=== PATIENT | male | born 1955 | race Caucasian/White ===

== ENCOUNTER 2018-02-09 17:35 | Emergency (ER) | payer BC, OTHER ==
[2018-02-09] MEDS ORDERED: NS 0.9% 1000 ML* 1,000 ML IV ONE ×3 (17:59→19:51)
[2018-02-09] MEDS ORDERED: Ondansetron INJ* 2 MG/ML VIAL IV ONE ×2 (17:59→19:46)
[2018-02-09] MEDS ORDERED: Ondansetron INJ* 2 MG/ML VIAL ONE (18:00)
--- NOTE | 2018-02-09 18:04 | ED ---
HPI Chest Pain - HPI Summary HPI Summary: The patient is a 62-year-old male with no significant PMH presenting to the ED with acute onset right-sided neck pain radiating into the mid sternal chest region which she describes as a pressure and achy, rating the pain a 10/10 which remained constant for several minutes. He was performing some physical therapy exercises when his symptoms occurred. However, he states he performs his physical therapy exercises often and has never had this happen. He also complains of shortness of breath. and family member at bedside both stating he appeared very vincent and extremely diaphoretic, became very dizzy and complained of blurry and double vision. Denies any radiation of symptoms into the bilateral arms or to the left side of the neck. Denies any headache. He took a 325 aspirin at home and the ambulance was called. On arrival into the ED , he developed another episode of similar symptoms of midsternal chest pain, blurry vision, diaphoresis, became very pale and began to vomit. He has no cardiac history. He states he is very healthy and is very active. He denies any recent travel, history of bedrest, known malignancy or recent illness. He takes a baby aspirin [address] Moscoso is his PCP. He denies having an echo or EKG in recent history. - History of Current Complaint Chief Complaint: EDChestPainROMI Time Seen by Provider: 02/09/18 17:44 Hx Obtained From: Patient, Family/Inbound Sales Advisor Onset/Duration: Started Minutes Ago Timing: Constant Initial Severity: Severe Current Severity: Moderate Pain Intensity: 5 Pain Scale Used: 0-10 Numeric Chest Pain Location: Mid Sternal Chest Pain Radiates: Yes Chest Pain Radiates To:: Neck Character: Dull/Aching Aggravating Factor(s): Nothing Alleviating Factor(s): Nothing Associated Signs and Symptoms: Positive: Chest Pain, Vision Changes, Lightheadedness, Diaphoresis, Nausea - Risk Factors Pulmonary Embolism Risk Factors: Negative TAD Risk Factors: Negative AMI/ACS Risk Factors: Myocardial Infarction - Additional Pertinent History Referred By: Other Recent Echo: No Recent Stress Test: No - Allergy/Home Medications Allergies/Adverse Reactions: Allergies Allergy/AdvReac Type Severity Reaction Status Date / Time oxycodone Allergy Severe See Comment Verified 02/09/18 18:08 PMH/Surg Hx/FS Hx/Imm Hx Previously Healthy: Yes Endocrine/Hematology History: Denies: Hx Diabetes Cardiovascular History: Denies: Hx Hypertension Respiratory History: Denies: Hx Chronic Obstructive Pulmonary Disease (COPD) GI History: Reports: Hx Gastroesophageal Reflux Disease - ON MEDICATION FOR History: Denies: Hx Dialysis Musculoskeletal History: Reports: Hx Arthritis - HIPS Sensory History: Reports: Hx Contacts or Glasses - GLASSES Denies: Hx Hearing Aid Opthamlomology History: Reports: Hx Contacts or Glasses - GLASSES Neurological History: Denies: Hx Dementia, Hx Seizures - Surgical History Surgery Procedure, Year, and Place: LEFT WRIST SURGERY, left hip 2013 Hx Anesthesia Reactions: No - Immunization History Hx Pertussis Vaccination: No Immunizations Up to Date: Yes Infectious Disease History: No Infectious Disease History: Denies: Traveled Outside the [place] in Last 30 Days - Social History Occupation: Employed Full-time Lives: With Family Alcohol Use: None Hx Substance Use: No Substance Use Type: Reports: None Hx Tobacco Use: No Smoking Status (MU): Never Smoked Tobacco Review of Systems Constitutional: Negative Negative: Fever, Chills, Fatigue, Skin Diaphoresis Positive: Blurred Vision Positive: Chest Pain. Negative: Palpitations Positive: Shortness Of Breath. Negative: Cough Positive: Nausea. Negative: Abdominal Pain, Vomiting, Diarrhea Negative: Arthralgia, Myalgia Skin: Negative Positive: Weakness. Negative: Headache, Paresthesia, Numbness, Syncope Psychological: Normal All Other Systems Reviewed And Are Negative: Yes Physical Exam Triage Information Reviewed: Yes Vital Signs On Initial Exam: Initial Vitals Pulse Resp Pulse Ox 138 35 97 02/09/18 17:43 02/09/18 17:43 02/09/18 17:43 Vital Signs Reviewed: Yes Appearance: Positive: Ill-Appearing, Pain Distress Skin: Positive: Diaphoretic Head/Face: Positive: Normal Head/Face Inspection Eyes: Positive: EOMI, MARYCARMEN, Conjunctiva Clear Neck: Positive: Supple, Nontender, No Lymphadenopathy Respiratory/Lung Sounds: Positive: Clear to Auscultation, Breath Sounds Present Cardiovascular: Positive: Pulses are Symmetrical in both Upper and Lower Extremities, Tachycardia. Negative: Leg Edema Left, Leg Edema Right Musculoskeletal: Positive: Normal, Strength/ROM Intact Neurological: Positive: Speech Normal Psychiatric: Positive: Normal, Affect/Mood Appropriate AVPU Assessment: Alert Diagnostics - Vital Signs Vital Signs Temp Pulse Resp BP Pulse Ox 02/09/18 17:46 98.3 F 72 18 115/86 98 02/09/18 17:45 83 24 115/86 100 02/09/18 17:43 138 35 97 - Laboratory Result Diagrams: 02/09/18 17:59 02/09/18 17:59 Lab Statement: Any lab studies that have been ordered have been reviewed, and results considered in the medical decision making process. - CT No standard instances CT Interpretation: Positive (See Comments) CT Interpretation Completed By: Radiologist - IMPRESSION: No evidence of aneurysmal dilatation or branch occlusion is noted. Atherosclerosis at the origin of the left internal carotid artery. Less than 50% stenosis of left internal carotid artery. No significant stenosis of the right internal carotid artery Dr. Salvador was given a preliminary report of the CTA of the chest demonstrating a ascending aortic aneurysm measuring up to 7.5 cm with likely mediastinal hemorrhage and moderate to large pericardial effusion. Chest Pain Course/Dx - Course Course Of Treatment: During the course of treatment, the patient is evaluated for midsternal chest pain, right-sided neck pain. On arrival, EKG obtained which shows normal sinus rhythm. Labs obtained which show an elevated d-dimer at 290, troponin 0.01. Patient continues to complain of nausea, diaphoresis and worsening chest pain, however he continues to decline the morphine. Discussed case with Dr. Salvador who agrees to see patient and agrees with CTA. He is given Zofran 4 mg which improved his symptoms. CTA of chest, head and neck obtained. Dr. Oakley called to stat ready CTA. See above for report. He is accepting of morphine at this time and 2mg morphine and 4mg zofran is given. He is then given reglan as zofran did not improve his symptoms. BP drops from 140/89 on arrival to 89/56. Continues to receive fluids. Called [facility] for transfer. ALS by helicopter - patient is critical. Accepting physician is Dr. Lynch at [facility]. - Chest Pain Differential Diagnosis/HQI/PQRI: Acute NH, Angina, Pulmonary Embolism, Other: - aortic dissection - Diagnoses Provider Diagnoses: Aortic aneurysm - Provider Notifications Instructed by Provider To: Transfer Admit/Transition Orders Completed By ED Provider: Yes Reason For Transfer: Specialty or service not available at [facility] [place]. - Critical Care Time Critical Care Time: 75-104 min Discharge - Sign-Out/Discharge Documenting (check all that apply): Patient Departure - Discharge Plan Condition: Critical Disposition: TRANS HIGHER LVL OF CARE FAC Referrals: Eric Moscoso MD [Primary Care Provider] - - Billing Disposition and Condition Condition: CRITICAL Disposition: Trans Higher Lvl of Care Fac
[2018-02-09 18:10] LABS: ABS Basophils 0.1 10^3/ul (0-0.2); ABS Eosinophils 0.5 10^3/ul (0-0.6); ABS Lymphocytes 2.5 10^3/ul (1.0-4.8); ABS Monocytes 0.9 10^3/ul (0-0.8); ABS Neutrophils 8.8 10^3/ul (1.5-7.7); ABS Nucleated RBC 0 10^3/ul; Eosinophil % 3.6 % (0-6); Hematocrit 41 % (42-52); Hemoglobin 14.3 g/dl (14.0-18.0); Lymphocyte % 19.6 % (25-47); Mean Corpuscular HGB Conc 35 g/dl (31-36); Mean Corpuscular Hemoglobin 30 pg (27-31); Mean Corpuscular Volume 87 fL (80-94); Mean Platelet Volume 7.2 um3 (7.4-10.4); Nucleated Red Blood Cells % 0.1; Platelet Count 218 10^3/ul (150-450); Red Blood Count 4.76 10^6/ul (4.00-5.40); Red Cell Distribution Width 13 % (10.5-15); White Blood Count 12.8 10^3/ul (3.5-10.8)
[2018-02-09 18:28] LABS: EGFR Non-African American 70.3 (>60)
[2018-02-09 18:31] LABS: INR 0.95 (0.77-1.02)
[2018-02-09] MEDS ORDERED: Iodixanol* (CONTRAST) 320 MG/ML 100 ML SDV IV ONE ×2 (18:37→19:17)
--- OUTSIDE RECORDS SUMMARY | 2018-02-09 18:52 | XMS REPORT | Continuity of Care Document ---
:1955 External Reference #:[id number] Author Name Eric Moscoso M.D. Address [address] [facility] [address] [place] [address] Care Team Providers Name Role Phone HCP given Primary Care Physician Unavailable Payers Type Date Identification Numbers Payment Provider Subscriber Policy Number: [id number] [place] [employer] Number: [id number] [address] PayID: [id number] [place] [address] Advance Directives Description No Information Available Problems Date Description Provider Status Onset: 07/03/2006 Family history of prostate cancer Eric Moscoso M.D. Active Family History Date Family Member(s) Problem(s) Comments General Both paternal uncles of CAD in their late 50s to early 60s. 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 Tobacco Use Reviewed: Never Smoked Cigarettes 06/02/14 Smoking Status Reviewed: Never Smoked Cigarettes 06/02/14 ETOH Use Rare Alcohol Use Exercise Type/Frequency Exercises regularly Current Allergies, Adverse Reactions, Alerts Date Description Reaction Status Severity Comments 12/16/2012 Oxycodone Active [place] depressed 07/03/2006 NKDA Inactive Medications Medication Date Status Form Strength Qnty SIG Indications Ordering Provider Vitamin D 06/12/ Active 2 po daily Unknown 2016 Ibuprofen 02/19/ Active Tablets 800mg prn Unknown 2014 Hydrocortisone 07/28/ Active Lotion 2.5% 59ml apply twice 691.8 Tracy 2014 a day as Gary, needed D.O. Osteo Bi-Flex 02/06/ Active Tablets Danis, 2010 Mariela Reyes Ecotrin Low 07/06/ Active Tablets 81mg 100ta 1tab po 786.50 Jerad, Strength 2009 bs daily for Nancy BONILLA cad/cva prophylaxis Multi-Vitamin 12/01/ Active Tablets 1 qd Danis, 2007 Mariela Reyes PT For Right 12/26/ Hx please M25.551 Danis Groin Pain 2018 - evaluate and Eric (Suspect Hip 01/26/ treat, M.Jillian Flexor) 2018 instruct in hep, modalities prn Proair HFA 07/28/ Hx Aerosol 108(90Bas 8.5un 1-2 puffs 466.0 Tracy 2014 - e) its four times a Gary, 08/27/ mcg/Act day as D.O. 2015 needed Qvar 07/28/ Hx Aerosol 80mcg/Act 1unit 1 puff twice 466.0 Tracy, 2015 - s a day every Gary, 08/11/ day and D.O. 2014 rinse after use Atorvastatin 06/22/ Hx Tablets 20mg 90tab 1 by mouth 272.0 Danis Calcium 2014 - s every day Eric 06/27/ for high M.D. 2014 cholesterol Prednisone 01/06/ Hx Tablets 10mg 21tab 4 tabs qd 692.6 Tracy 2013 - s for 2 days Gary 05/31/ then 3 tabs D.O. 2014 qd for 2 days then 2 tabs qd for 2 days then 1 tab qd for 2 days then 1/2 tab qd for 2 days [id number] 02/07/ Hx Capsules 500-50mg 180ca 1 by mouth 715.15 Danis 2010 - ps twice a day Eric 03/20/ for joint M.D. 2012 pains Mupirocin 02/07/ Hx Ointment 2% 22gm apply to 684 Danis 2010 - affected Eric 02/21/ area on r M.D. 2010 earlobe 4-6x/day until clear Proventil HFA 08/09/ Hx Aerosol 108(90Bas 1unit use one to 2 786.2 Jerad, 2010 - e) mcg/ac s inh q 6hours Nancy BONILLA 03/20/ prn cough. 2011 Azithromycin 08/09/ Hx Tablets 250mg 6tabs 2 tab po on 786.2 Jerad 2010 - day one then Nancy BONILLA 08/14/ one tab 2011 daily x 4more days prn for your respiratory infection PT For Left Hip 11/17/ Hx please 719.45 Silcoff, And Knee Pain 2008 - evaluate and Eric 07/06/ Mariela guerrero 2010 instruct in hep, modalities prn (Xrays pending) Tagamet 12/01/ Hx Tablets 200mg Using OTC as Danis 2007 - Directed Eric 06/15/ Mariela 2017 No Routine Meds 09/23/ Hx Mariettacoprincess, 2007 - Eric 12/01/ Mariela 2007 Symbicort 06/30/ Hx Aerosol 80-4.5 1Samp 2 puff bid 786.2 Danis 2007 - le Eric 07/14/ Mariela 2007 466.0 Zithromax Z-Isaiah 07/01/2007 - Hx Tablets 250mg 1Pack 2 PO On 466.0 Danis 07/06/2007 Day 1, 1 Mariela Reyes PO On Days 2-5 786.2 Naprosyn - Hx Tablets 500mg 60tabs 1 po bid Unknown 07/06/2009 Tagamet HB - Hx Tablets 200mg to use regulalry 786.50 Jerad, 06/15/2017 to prevent Nancy BONILLA reflus sx pending evaluation 530.81 Medications Administered in Office Medication Date Status Form Strength Qnty SIG Indications Ordering Provider injection, Administered Injection Sopchak, kenalog, 10 mg 014 Gary, D.O. SC/Im Administered Injection Sopchak, Injections 014 Gary, D.O. Immunizations CPT Code Status Date Vaccine Lot # [id number] Given 12/26/2017 Influenza Virus Vaccine, Quadrivalent, Split, [id number] Preservative Free 23073 Given 10/25/2017 Shingrix Zoster (Shingles) Vaccine (HZV) [id number] Recomb,Subnit,Adjuvanted 46317 Given 08/29/2017 Shingrix Zoster (Shingles) Vaccine (HZV) [id number] Recomb,Subnit,Adjuvanted 03407 Given 06/15/2017 Influenza Virus Vaccine, Quadrivalent, Split, [id number] Preservative Free 65051 Given 12/16/2012 Zostavax [id number] 72506 Given 02/07/2011 Adacel or Boostrix, TDaP [id number] 34874 Given 08/29/1999 Td Immunization [id number] Refused 02/07/2011 Flu, Split Virus [id number] Refused 02/22/2009 Flu, Split Virus 3Yrs Vital Signs Date Vital Result Comment 02/08/2018 1:51pm BP Systolic 148 mmHg BP Diastolic 78 mmHg Height 69.50 inches 5'9.50" Weight 208.00 lb BMI (Body Mass Index) 30.3 kg/m2 12/26/2017 3:13pm BP Systolic 164 mmHg BP Diastolic 84 mmHg Weight 204.00 lb 06/15/2017 9:55am BP Systolic 162 mmHg BP Diastolic 92 mmHg BP Systolic Recheck 140 mmHg R arm sitting BP Diastolic Recheck 78 mmHg R arm sitting Heart Rate 74 /min reg Respiratory Rate 14 /min not laboured Height 69.5 inches 5'9.50" Weight 201.00 lb BMI (Body Mass Index) 29.3 kg/m2 06/13/2016 10:51am BP Systolic 142 mmHg BP Diastolic 88 mmHg BP Systolic Recheck 138 mmHg R arm sitting BP Diastolic Recheck 84 mmHg R arm sitting Heart Rate 76 /min reg Respiratory Rate 12 /min not laboured Height 69.5 inches 5'9.50" Weight 204.00 lb BMI (Body Mass Index) 29.7 kg/m2 12/29/2015 2:03pm BP Systolic 136 mmHg BP Diastolic 80 mmHg Body Temperature 98.9 F Weight 207.00 lb 10/21/2015 4:10pm BP Systolic 142 mmHg BP Diastolic 90 mmHg Height 70 inches 5'10" with shoes Weight 209.00 lb with shoes BMI (Body Mass Index) 30.0 kg/m2 06/29/2015 12:50pm BP Systolic 142 mmHg BP Diastolic 85 mmHg Weight 198.00 lb 06/08/2015 10:44am BP Systolic 134 mmHg BP Diastolic 80 mmHg BP Systolic Recheck 138 mmHg R arm sitting BP Diastolic Recheck 88 mmHg R arm sitting Heart Rate 72 /min reg Respiratory Rate 12 /min not laboured Weight 201.00 lb 02/22/2015 11:30am BP Systolic 155 mmHg his cuff; 161/104 Larm BP Diastolic 91 mmHg his cuff; 161/104 Larm BP Systolic Recheck 152 mmHg our cuff; 156/96 L arm BP Diastolic Recheck 88 mmHg our cuff; 156/96 L arm Height 70.25 inches 5'10.25" Weight 208.00 lb BMI (Body Mass Index) 29.6 kg/m2 02/22/2015 10:40am BP Systolic 152 mmHg BP Diastolic 90 mmHg Height 70.25 inches 5'10.25" with shoes Weight 208.00 lb with shoes BMI (Body Mass Index) 29.6 kg/m2 07/28/2014 1:43pm BP Systolic 146 mmHg BP Diastolic 86 mmHg Body Temperature 98.7 F Weight 203.00 lb 06/02/2014 10:47am BP Systolic 138 mmHg BP Diastolic 94 mmHg BP Systolic Recheck 140 mmHg L arm; 130 by palp BP Diastolic Recheck 90 mmHg L arm; 130 by palp Height 69.5 inches 5'9.50" Weight 202.00 lb BMI (Body Mass Index) 29.4 kg/m2 01/06/2014 12:04pm Body Temperature 98.5 F Weight 204.00 lb 12/16/2012 1:30pm BP Systolic 140 mmHg BP Diastolic 80 mmHg Height 70 inches 5'10" Weight 199.00 lb BMI (Body Mass Index) 28.6 kg/m2 06/05/2012 9:42am BP Systolic 154 mmHg Reg cuff; 138/80 w/ large cuff BP Diastolic 88 mmHg Reg cuff; 138/80 w/ large cuff BP Systolic Recheck 152 mmHg R arm sitting w/ large cuff BP Diastolic Recheck 98 mmHg R arm sitting w/ large cuff Heart Rate 60 /min reg Respiratory Rate 12 /min not laboured Weight 189.00 lb 04/05/2012 1:39pm BP Systolic 142 mmHg BP Diastolic 90 mmHg Weight 184.00 lb 03/20/2012 4:27pm BP Systolic 144 mmHg BP Diastolic 94 mmHg Body Temperature 98.3 F Height 70 inches 5'10" Weight 183.00 lb BMI (Body Mass Index) 26.3 kg/m2 02/07/2011 10:59am BP Systolic 138 mmHg BP Diastolic 96 mmHg BP Systolic Recheck 148 mmHg R arm sitting BP Diastolic Recheck 100 mmHg R arm sitting Height 70 inches 5'10" Weight 207.00 lb BMI (Body Mass Index) 29.7 kg/m2 Last Menstrual Period 0 08/09/2010 11:30am BP Systolic 124 mmHg BP Diastolic 68 mmHg Body Temperature 98.1 F Height 70 inches 5'10" Weight 207.00 lb BMI (Body Mass Index) 29.7 kg/m2 Last Menstrual Period 0 07/06/2009 10:16am BP Systolic 138 mmHg 142/92 this am at home BP Diastolic 88 mmHg 142/92 this am at home Weight 209.00 lb 02/22/2009 9:43am BP Systolic 138 mmHg BP Diastolic 88 mmHg BP Systolic Recheck 146 mmHg L arm sitting BP Diastolic Recheck 92 mmHg L arm sitting Heart Rate 68 /min reg Height 70 inches 5'10" Weight 207.00 lb BMI (Body Mass Index) 29.7 kg/m2 Last Menstrual Period 0 11/17/2008 3:19pm BP Systolic 130 mmHg BP Diastolic 92 mmHg Height 70.75 inches 5'10.75" Weight 200.00 lb BMI (Body Mass Index) 28.1 kg/m2 12/02/2007 1:36pm BP Systolic 132 mmHg BP Diastolic 78 mmHg Height 70.25 inches 5'10.25" Weight 203.00 lb BMI (Body Mass Index) 28.9 kg/m2 09/24/2007 9:54am BP Systolic 140 mmHg anxious BP Diastolic 80 mmHg anxious Height 70.25 inches 5'10.25" Weight 202.00 lb BMI (Body Mass Index) 28.8 kg/m2 07/01/2007 8:57am BP Systolic 122 mmHg BP Diastolic 84 mmHg Respiratory Rate 16 /min not laboured Body Temperature 98.0 F Height 70.25 inches 5'10.25" Weight 202.50 lb BMI (Body Mass Index) 28.8 kg/m2 07/03/2006 8:35am BP Systolic 148 mmHg BP Diastolic 100 mmHg BP Systolic Recheck 146 mmHg R arm sitting BP Diastolic Recheck 96 mmHg R arm sitting Heart Rate 54 /min reg Respiratory Rate 12 /min not laboured Height 70.25 inches 5'10.25" Weight 201.00 lb BMI (Body Mass Index) 28.6 kg/m2 Results Test Date Facility Test Result H/L Range Note Laboratory test 01/21/2018 [facility] PSA Diagnostic 5.007 ng/mL High 0-4.0 1 finding [phone] Laboratory test 08/13/2017 [facility] PSA Screening 3.830 ng/mL 0- 4.0 2 finding [phone] Laboratory test 05/28/2017 [facility] PSA Screening 4.378 ng/mL High 0-4.000 3 finding [phone] Basic Metabolic 05/28/2017 [facility] Sodium 138 mmol/L 133-145 Panel [phone] Potassium 4.9 mmol/L 3.5-5.0 Chloride 105 mmol/L 101-111 Co2 Carbon Dioxide 28 mmol/L 22-32 Anion Gap 5 mmol/L 2-11 Glucose 94 mg/dL 70-100 Blood Urea Nitrogen 17 mg/dL 6-24 Creatinine 1.03 mg/dL 0.67-1.17 BUN/Creatinine Ratio 16.5 8-20 Calcium 9.4 mg/dL 8.6-10.3 Egfr Non- 73.4 >60 Egfr 94.4 >60 4 Lipid Profile (Trig/Chol/HDL) 05/28/2017 [facility] Triglycerides 63 mg /dL 5 [phone] Cholesterol 195 mg/dL 6 HDL Cholesterol 57.8 mg/dL 7 LDL Cholesterol 125 mg/dL 8 Laboratory test 11/10/2016 [facility] Surgical SEE RESULT 9, 10 finding [phone] Pathology BELOW Urine Micro 06/13/2016 In House Ua WBC - 11 Inhouse Ua RBC - Ua Casts - Ua Epi - Ua Other - Ua Glucose - Ua Bilirubin - Ua Ketones - Ua Specific [place] 1.020 Ua Blood - Ua PH 6.0 Ua Protein - Ua Urobilinogen - Ua Nitrite - Ua Leukocytes - Laboratory test 06/02/2016 [facility] PSA Screening 3.145 ng/mL 0- 4.000 12 finding [phone] Alt (SGPT) 14 U/L 7-52 Lipid Profile (Trig/Chol/HDL) 06/02/2016 [facility] Triglycerides 75 mg /dL 13 [phone] Cholesterol 183 mg/dL 14 HDL Cholesterol 52.4 mg/dL 15 LDL Cholesterol 116 mg/dL 16 Basic Metabolic Panel 06/02/2016 [facility] Sodium 138 mmol/L 133- 145 [phone] Potassium 4.3 mmol/L 3.5-5.0 Chloride 105 mmol/L 101-111 Co2 Carbon Dioxide 28 mmol/L 22-32 Anion Gap 5 mmol/L 2-11 Glucose 95 mg/dL 70-100 Blood Urea Nitrogen 15 mg/dL 6-24 Creatinine 0.94 mg/dL 0.67-1.17 BUN/Creatinine Ratio 16.0 8-20 Calcium 9.0 mg/dL 8.6-10.3 Egfr Non- 81.9 >60 Egfr 105.3 >60 17 Urine Micro Inhouse 12/31/2015 In House Ua WBC - Ua RBC tntc Ua Casts - Ua Epi - Ua Other - Ua Glucose - Ua Bilirubin - Ua Ketones - Ua Specific [place] 1.030 Ua Blood lrg Ua PH 5.0 Ua Protein 1+ Ua Urobilinogen - Ua Nitrite - Ua Leukocytes - Urine Micro Inhouse 12/29/2015 In House Ua WBC - Ua RBC rare Ua Casts - Ua Epi - Ua Other - Ua Glucose - Ua Bilirubin - Ua Ketones - Ua Specific [place] 1.010 Ua Blood mod Ua PH 5.0 Ua Protein - Ua Urobilinogen - Ua Nitrite - Ua Leukocytes - Urine Micro Inhouse 10/21/2015 In House Ua WBC - Ua RBC - Ua Casts - Ua Epi - Ua Other - Ua Glucose - Ua Bilirubin - Ua Ketones - Ua Specific [place] 1.005 Ua Blood - Ua PH 5.0 Ua Protein - Ua Urobilinogen - Ua Nitrite - Ua Leukocytes - Basic Metabolic Panel 08/26/2015 [facility] Sodium 135 mmol/L 133- 145 [phone] Potassium 4.2 mmol/L 3.5-5.0 Chloride 104 mmol/L 101-111 Co2 Carbon Dioxide 23 mmol/L 22-32 Anion Gap 8 mmol/L 2-11 Glucose 89 mg/dL 70-100 Blood Urea Nitrogen 19 mg/dL 6-24 Creatinine 0.87 mg/dL 0.67-1.17 BUN/Creatinine Ratio 21.8 High 8-20 Calcium 9.2 mg/dL 8.6-10.3 Egfr Non- 89.8 >60 Egfr 115.5 >60 18 Laboratory test 05/31/2015 [facility] PSA Screening 2.882 ng/mL 0- 4.000 19 finding [phone] Alt (SGPT) 15 U/L 7-52 20 Lipid Profile (Trig/Chol/HDL) 05/31/2015 [facility] Triglycerides 52 mg /dL 21 [phone] Cholesterol 181 mg/dL 22 HDL Cholesterol 53.6 mg/dL 23 LDL Cholesterol 117 mg/dL 24 Basic Metabolic Panel 05/31/2015 [facility] Sodium 138 mmol/L 133- 145 [phone] Potassium 4.1 mmol/L 3.5-5.0 Chloride 106 mmol/L 101-111 Co2 Carbon Dioxide 24 mmol/L 22-32 Anion Gap 8 mmol/L 2-11 Glucose 91 mg/dL 70-100 Blood Urea Nitrogen 14 mg/dL 6-24 Creatinine 0.78 mg/dL 0.67-1.17 BUN/Creatinine Ratio 17.9 8-20 Calcium 8.9 mg/dL 8.6-10.3 Egfr Non- 101.9 >60 Egfr 131.0 >60 25 Laboratory test 06/02/2014 [facility] PSA Screening 3.367 ng/mL 0- 4.000 26, 27 finding [phone] Alt 16 U/L 7-52 28 Lipid Profile (Trig/Chol/HDL) 06/02/2014 [facility] Triglycerides 98 mg /dL 29 [phone] Cholesterol 220 mg/dL 30 HDL Cholesterol 61.5 mg/dL 31 LDL Cholesterol 139 mg/dL 32 Basic Metabolic Panel 06/02/2014 [facility] Sodium 137 mmol/L 133- 145 [phone] Potassium 4.1 mmol/L 3.5-5.0 Chloride 103 mmol/L 101-111 Co2 Carbon Dioxide 28 mmol/L 22-32 Anion Gap 6 mmol/L 2-11 Glucose 87 mg/dL 70-100 Blood Urea Nitrogen 13 mg/dL 6-24 Creatinine 0.86 mg/dL 0.67-1.17 BUN/Creatinine Ratio 15.1 8-20 Calcium 9.5 mg/dL 8.6-10.3 Egfr Non- 91.3 >60 Egfr 117.5 >60 33 Urine Micro Inhouse 06/02/2014 In House Ua WBC - Ua RBC - Ua Casts - Ua Epi - Ua Other - Ua Glucose - Ua Bilirubin - Ua Ketones - Ua Specific [place] 1.005 Ua Blood - Ua PH 5.0 Ua Protein - Ua Urobilinogen - Ua Nitrite - Ua Leukocytes - Surgical Pathology 04/01/2013 [facility] S RUN DATE: 34 [phone] 04/03/ <SEE NOTE> Laboratory test 12/16/2012 [facility] PSA Screening 3.4 ng/mL 0-4.0 35 finding [phone] Laboratory test 06/21/2012 [facility] Inr 0.93 0.87-0.9 36 finding [phone] Basic Metabolic 06/21/2012 [facility] Sodium 138 mmol/L 133-145 Panel [phone] Potassium 4.7 mmol/L 3.5-5.0 Chloride 104 mmol/L 101-111 Co2 Carbon Dioxide 27.0 mmol/L 22-32 Anion Gap 7.0 mmol/L 2-11 Glucose 83 mg/dL 70-100 Blood Urea Nitrogen 20 mg/dL 6-24 Creatinine 0.80 mg/dL 0.50-1.40 BUN/Creatinine Ratio 25.0 High 8-20 Calcium 9.4 mg/dL 8.1-9.9 Egfr Non- 100.0 >60 Egfr 128.6 >60 37 Type & Screen 06/21/2012 [facility] Patient Blood Type A Negative [phone] Antibody Screen NEGATIVE CBC Auto Diff 06/21/2012 [facility] White Blood Count 6.6 10^3/uL 4.8-10.8 [phone] Red Blood Count 4.63 10^6/uL 4.0-5.4 Hemoglobin 14.1 g/dL 14.0-18.0 Hematocrit 42 % 42-52 Mean Corpuscular Volume 90 fL 80-94 Mean Corpuscular Hemoglobin 31 pg 27-31 Mean Corpuscular HGB Conc 34 g/dL 31-36 Red Cell Distribution Width 12 % 10.5-15 Platelet Count 182 10^3/uL 150-450 Mean Platelet Volume 8 um3 7.4-10.4 Abs Neutrophils 4.3 10^3/uL 1.5-7.7 Abs Lymphocytes 1.5 10^3/uL 1.0-4.8 Abs Monocytes 0.6 10^3/uL 0-0.8 Abs Eosinophils 0.3 10^3/uL 0-0.6 Abs Basophils 0 10^3/uL 0-0.2 Abs Nucleated RBC 0.01 10^3/uL Granulocyte % 65.0 % 38-83 Lymphocyte % 22.1 % Low 25-47 Monocyte % 8.5 % 1-9 Eosinophil % 3.8 % 0-6 Basophil % 0.6 % 0-2 Nucleated Red Blood Cells % 0.1 Urinalysis 06/21/2012 [facility] Urine Color Yellow [phone] Urine Appearance Clear Urine Specific [place] 1.021 1.010-1.030 Urine Esterase Negative Negative Urine Nitrate Negative Negative Urine Urobilinogen Negative E.U./dL Negative Urine Protein Negative mg/dL Negative Urine pH 5.5 5-9 Urine Blood Negative Negative Urine Ketones Negative mg/dL Negative Urine Bilirubin Negative Negative Urine Glucose Negative mg/dL Negative Surgical 11/09/2011 [facility] <SEE 38 Pathology [phone] Pathology NOTE> Urine Micro 02/07/2011 In House Ua WBC - Inhouse Ua RBC - Ua Casts - Ua Epi - Ua Other - Ua Glucose - Ua Bilirubin - Ua Ketones - Ua Specific [place] 1.030 Ua Blood - Ua PH 5.0 Ua Protein - Ua Urobilinogen - Ua Nitrite - Ua Leukocytes - Laboratory test finding 02/07/2011 [facility] Glucose 86 mg/dL 70- 100 [phone] Lipid Profile 02/07/2011 [facility] Triglyceride 187 mg/dL 40-200 (Trig/Chol/HDL) [phone] Cholesterol 249 mg/dL High Less Than 200 39 High Density Lipoprotein 59 mg/dL 40-60 40 Cholesterol/HDL Ratio 4.22 AVERAGE 1-4.97 Low Density Lipoprotein 153 mg/dL High Less Than 100 41 Surgical 11/16/2009 [facility] <SEE 42 Pathology [phone] Pathology NOTE> Basic 07/08/2009 [facility] Sodium 137 mmol/L 135-1 Metabolic [phone] Panel Potassium 3.9 mmol/L 3.5-5.0 Chloride 104 mmol/L 101-111 Co2 (Carbon Dioxide) 24.0 mmol/L 22-32 Anion Gap 9.0 mmol/L 2-11 43 Glucose 93 mg/dL 70-100 44 BUN 19 mg/dL 6-24 Creatinine 0.90 mg/dL 0.50-1.40 One Over Creatinine 1.10 BUN/Creatinine Ratio 21.1 High 8-20 Calcium 8.8 mg/dL 8.1-9.9 45 eGFR Non- 93.8 > 60 eGFR 113.5 > 60 46 CBC With Manual 07/06/2009 [facility] White Blood Count 5.1 CUMM 4.8 -10.8 Diff [phone] Red Cell Count 4.84 CUMM 4.6-6.2 Hemoglobin 14.7 g/dL 14.0-18.0 Hematocrit 42 % 42-52 Mean Corpuscular Volume 86 um3 80-94 Mean Corpuscular Hemoglob 30 pg 27-31 Mean Corpuscular HGB Cone 35 g/dL 32-36 Redcell Distribution WDTH 13 % 10.5-15 Platelet Count 206 CUMM 150-450 Mean Platelet Volume 7.3 um3 Low 7.4-10.4 Polysegmented Neutrophil 68 % 38-83 Band Neutrophil 5 % 0-8 Lymphocyte 25 % 25-47 Monocyte 2 % 0-13 Absolute Neutrophil Count 3.7 RBC Morphology NORMAL Comp Metabolic Panel 07/06/2009 [facility] Sodium 151 mmol/L High 135 -145 [phone] Potassium 5.1 mmol/L High 3.5-5.0 Chloride 118 mmol/L High 101-111 Co2 (Carbon Dioxide) 31.0 mmol/L 22-32 Anion Gap 2.0 mmol/L 2-11 47 Glucose 95 mg/dL 70-100 48 BUN 21 mg/dL 6-24 Creatinine 0.76 mg/dL 0.50-1.40 One Over Creatinine 1.30 BUN/Creatinine Ratio 27.6 High 8-20 Calcium 9.8 mg/dL 8.1-9.9 49 Total Protein 7.3 GM/DL 6.2-8.1 Albumin 4.2 GM/DL 3.6-5.4 Globulin 3.1 GM/DL 2-4 Albumin/Globulin Ratio 1.4 1-3 Bilirubin Total 0.7 mg/dL 0.4-1.5 50 Alkaline Phosphatase 66 U/L 39-117 Alt (SGPT) 16 U/L Low 17-63 Ast (Sgot) 16 U/L 12-42 eGFR Non- 114.0 > 60 eGFR 138.0 > 60 51 Laboratory test 07/06/2009 [facility] Troponin-I (TnI) 0 NG/ML 52 finding [phone] Surgical 05/25/2009 [facility] Surgical Pathology 53 Pathology [phone] ---- <SEE NOTE> Laboratory test 02/22/2009 [facility] PSA Screening 2.12 NG/ML 0-4 54 finding [phone] Lipid Profile 02/22/2009 [facility] Triglyceride 101 mg/dL 40-200 (Trig/Chol/HDL) [phone] Cholesterol 215 mg/dL High Less Than 200 55 High Density Lipoprotein 54 mg/dL 40-60 56 Cholesterol/HDL Ratio 3.98 AVERAGE 1-4.97 Low Density Lipoprotein 141 mg/dL High Less Than 100 57 Xray 11/19/[address] [facility] X-Ray, Hip, Complete, Severe OA; loose [address] Min. Of 2 Views, [place] [address] [phone] Knee, 3 Views, LT Mild OA suspected Laboratory test 12/13/2007 In House Occult Blood - Stool neg x3 finding Lipid Profile 12/03/2007 [facility] Triglyceride 110 mg/dL 40-200 (Trig/Chol/HDL) [phone] Cholesterol 236 mg/dL High Less Than 200 58 High Density Lipoprotein 56 mg/dL 40-60 59 Cholesterol/HDL Ratio 4.21 AVERAGE 1-4.97 Low Density Lipoprotein 158 mg/dL High Less Than 100 60 Laboratory test finding 12/03/2007 [facility] PSA Screening 1.76 NG/ML 0-4 61 [phone] Ua Inhouse 07/03/2006 In House Ua Glucose - Ua Bilirubin - Ua Ketones - Ua Specific [place] 1.025 Ua Blood - Ua PH 5.0 Ua Protein - Ua Urobilinogen - Ua Nitrite - Ua Leukocytes - Laboratory test 07/03/2006 In House Urine Microscopic - finding Inhouse Laboratory test 07/03/2006 [facility] PSA Screening 1.92 NG/ML 0.01- 4. 62 finding [phone] CBC With 07/03/2006 [facility] White Blood Count 4.7 CUMM Low 4.8- 10. Electronic Diff [phone] Abs Basophils 0 0-0.2 Abs Eosinophils 0.1 0-0.6 Absolute Neutrophil Count 2.8 1.5-7.7 Abs Lymphs 1.3 1.0-4.8 Abs Mononuclear 0.4 0-0.8 Basophil % 0.8 % 0-2 Hematocrit 42 % 42-52 Hemoglobin 14.8 g/dL 14.0-18.0 Eosinophil % 3.1 % 0-6 Gran % 60.1 % 38-83 Lymph % 27.4 % 20-45 Mean Corpuscular HGB Cone 35 g/dL 32-36 Mean Corpuscular Hemoglob 30 pg 27-31 Mean Corpuscular Volume 86 um3 80-94 Mean Platelet Volume 8.2 um3 7.4-10.4 Mononuclear % 8.6 % 1-9 Platelet Count 212 CUMM 150-450 Red Cell Count 4.89 CUMM 4.6-6.2 Redcell Distribution WDTH 12 % 10.5-15 Basic Metabolic Panel 07/03/2006 [facility] One Over Creatinine 1.11 [phone] Anion Gap 4.0 mmol/L 2-11 63 BUN 13 mg/dL 6-24 Calcium 9.5 mg/dL 8.7-10.2 Chloride 107 mmol/L 101-111 Co2 (Carbon Dioxide) 29.0 mmol/L 22-32 Glucose 90 mg/dL 70-105 Potassium 4.3 mmol/L 3.5-5.0 Sodium 140 mmol/L 135-145 BUN/Creatinine Ratio 14.4 8-20 Creatinine 0.9 mg/dL 0.5-1.4 Lipid Profile 07/03/2006 [facility] Cholesterol/HDL 4.41 1-4.97 (Trig/Chol/HDL) [phone] Ratio AVERAGE Cholesterol 225 mg/dL High Less Than 200 64 Triglyceride 104 mg/dL 40-200 High Density Lipoprotein 51 mg/dL 40-60 Low Density Lipoprotein 153 mg/dL High Less Than 100 65 1 Serum levels of PSA measured using the [employer] DXI Hybritech immunoassay should not be interpreted as absolute evidence of the presence or absence of disease. The PSA value should be used in conjunction with other pertinent clinical diagnostic procedures. The values obtained with different assay methods or kits cannot be used interchangeably. 2 Serum levels of PSA measured using the [employer] DXI Hybritech immunoassay should not be interpreted as absolute evidence of the presence or absence of disease. The PSA value should be used in conjunction with other pertinent clinical diagnostic procedures. The values obtained with different assay methods or kits cannot be used interchangeably. 3 Serum levels of PSA measured using the [employer] DXI Hybritech immunoassay should not be interpreted as absolute evidence of the presence or absence of disease. The PSA value should be used in conjunction with other pertinent clinical diagnostic procedures. The values obtained with different assay methods or kits cannot be used interchangeably. 4 Because ethnic data is not always readily available, this report includes an eGFR for both -Americans and non- Americans. The National Kidney Disease Education Program (NKDEP) does not endorse the use of the MDRD equation for patients that are not between the ages of 18 and 70, are , have extremes of body size, muscle mass, or nutritional status, or are non- or non-. According to the National Kidney Foundation, irrespective of diagnosis, the stage of the disease is based on the level of kidney function: Stage Description GFR(mL/min/1.73 m(2)) 1 Kidney damage with normal or decreased GFR 90 2 Kidney damage with mild decrease in GFR 60-89 3 Moderate decrease in GFR 30-59 4 Severe decrease in GFR 15-29 5 Kidney failure <15 (or dialysis) 5 Desirable: <150 Borderline High: 150-199 High: 200-499 Very High: >500 6 Desirable: <200 Borderline High: 200-239 High: >239 7 Low: <40 Desirable: 40-60 High: >60 8 Desirable: <100 Near Optimal: 100-129 Borderline High: 130-159 High: 160-189 Very High: >189 9 [id number] SEE RESULT BELOW Name: DIVINE JARVIS JR : [address]: Yonathan Mccann MD Acct: [id number] Unit: [id number] AGE: 61 Location: [facility] Re11/10/16 SEX: M Status: DEP REF SPEC: [id number] CHINO: 11/10/16-[address] [facility] [address]: Yonathan Mccann MD REQ: [id number] RECD: 11/10/16-4 STATUS: DANIA CAMPA DR: Eric Moscoso MD _ ORDERED: LEVEL 4/2 COMMENTS: [id number] FINAL DIAGNOSIS 1. Colon, 55 cm, biopsy: -- Tubular adenoma. -- No high grade dysplasia or malignancy. 2. Colon, 25 cm, biopsy: -- Hyperplastic polyp. CLINICAL HISTORY No history given POST-OPERATIVE DIAGNOSIS Colonoscopy to terminal ileum, prep good - biopsy at 25 cm, snare at 56; 5 years GROSS DESCRIPTION 1. The specimen is received in formalin labeled, Colon Polyp at 55 cm, and consists of two john irregular soft tissue fragments measuring 0.5 x 0.4 x 0.1 cm and 0.6 x 0.3 x 0.1 cm which are submitted entirely in one cassette. 2. The specimen is received in formalin labeled, Biopsy Colon Polyp at 25 cm, and consists of a 0.5 by up to 0.3 x 0.1 cm john-pink irregular soft tissue fragments which is submitted entirely in one cassette. Signed (signature on file) Alvin Hooper MD 1204 END OF REPORT * ML=Testing performed at Main Lab DEPARTMENT OF PATHOLOGY, [address] [place] [address] Alvin Hooper M.D. Director [facility] # [id number] 11 void, clear, gold 12 Serum levels of PSA measured using the Fabrizio Kirkwood DXI Hybritech immunoassay should not be interpreted as absolute evidence of the presence or absence of disease. The PSA value should be used in conjunction with other pertinent clinical diagnostic procedures. The values obtained with different assay methods or kits cannot be used interchangeably. 13 Desirable <150 Borderline high 150-199 High 200-499 Very High >500 14 Desirable <200 Borderline high 200-239 High >239 15 Low <40 Desirable: 40-60 High: >60 16 Desirable: <100 mg/dL Near Optimal: 100-129 mg/dL Borderline High: 130-159 mg/dL High: 160-189 mg/dL Very High: >189 mg/dL 17 Because ethnic data is not always readily available, this report includes an eGFR for both -Americans and non- Americans. The National Kidney Disease Education Program (NKDEP) does not endorse the use of the MDRD equation for patients that are not between the ages of 18 and 70, are , have extremes of body size, muscle mass, or nutritional status, or are non- or non-. According to the National Kidney Foundation, irrespective of diagnosis, the stage of the disease is based on the level of kidney function: Stage Description GFR(mL/min/1.73 m(2)) 1 Kidney damage with normal or decreased GFR 90 2 Kidney damage with mild decrease in GFR 60-89 3 Moderate decrease in GFR 30-59 4 Severe decrease in GFR 15-29 5 Kidney failure <15 (or dialysis) 18 Because ethnic data is not always readily available, this report includes an eGFR for both -Americans and non- Americans. The National Kidney Disease Education Program (NKDEP) does not endorse the use of the MDRD equation for patients that are not between the ages of 18 and 70, are , have extremes of body size, muscle mass, or nutritional status, or are non- or non-. According to the National Kidney Foundation, irrespective of diagnosis, the stage of the disease is based on the level of kidney function: Stage Description GFR(mL/min/1.73 m(2)) 1 Kidney damage with normal or decreased GFR 90 2 Kidney damage with mild decrease in GFR 60-89 3 Moderate decrease in GFR 30-59 4 Severe decrease in GFR 15-29 5 Kidney failure <15 (or dialysis) 19 Serum levels of PSA measured using the [facility] DXI Hybritech immunoassay should not be interpreted as absolute evidence of the presence or absence of disease. The PSA value should be used in conjunction with other pertinent clinical diagnostic procedures. The values obtained with different assay methods or kits cannot be used interchangeably. 20 FASTING 12 HOUR 21 Desirable <150 Borderline high 150-199 High 200-499 Very High >500 22 Desirable <200 Borderline high 200-239 High >239 23 Low <40 Desirable: 40-60 High: >60 24 Desirable: <100 mg/dL Near Optimal: 100-129 mg/dL Borderline High: 130-159 mg/dL High: 160-189 mg/dL Very High: >189 mg/dL 25 Because ethnic data is not always readily available, this report includes an eGFR for both -Americans and non- Americans. The National Kidney Disease Education Program (NKDEP) does not endorse the use of the MDRD equation for patients that are not between the ages of 18 and 70, are , have extremes of body size, muscle mass, or nutritional status, or are non- or non-. According to the National Kidney Foundation, irrespective of diagnosis, the stage of the disease is based on the level of kidney function: Stage Description GFR(mL/min/1.73 m(2)) 1 Kidney damage with normal or decreased GFR 90 2 Kidney damage with mild decrease in GFR 60-89 3 Moderate decrease in GFR 30-59 4 Severe decrease in GFR 15-29 5 Kidney failure <15 (or dialysis) 26 FASTING 12 HOUR 27 Serum levels of PSA measured using the Fabrizio Kirkwood DXI Hybritech immunoassay should not be interpreted as absolute evidence of the presence or absence of disease. The PSA value should be used in conjunction with other pertinent clinical diagnostic procedures. The values obtained with different assay methods or kits cannot be used interchangeably. 28 FASTING 12 HOUR 29 Desirable <150 Borderline high 150-199 High 200-499 Very High >500 30 Desirable <200 Borderline high 200-239 High >239 31 Low <40 Desirable: 40-60 High: >60 32 Desirable <100 Near Optimal 100-129 Borderline high 130-159 High 160-189 Very High >189 33 Because ethnic data is not always readily available, this report includes an eGFR for both -Americans and non- Americans. The National Kidney Disease Education Program (NKDEP) does not endorse the use of the MDRD equation for patients that are not between the ages of 18 and 70, are , have extremes of body size, muscle mass, or nutritional status, or are non- or non-. According to the National Kidney Foundation, irrespective of diagnosis, the stage of the disease is based on the level of kidney function: Stage Description GFR(mL/min/1.73 m(2)) 1 Kidney damage with normal or decreased GFR 90 2 Kidney damage with mild decrease in GFR 60-89 3 Moderate decrease in GFR 30-59 4 Severe decrease in GFR 15-29 5 Kidney failure <15 (or dialysis) 34 RUN DATE: 04/03/13 [facility] LAB LIVE PAGE 1 RUN TIME: [address] [place], [place] [address] Specimen Inquiry Name: DIVINE JARVIS JR : [address]: Rut Liang MD Acct: [id number] Unit: [id number] AGE: 58 Location: [facility] Re04/01/13 SEX: M Status: REG REF SPEC: [id number] CHINO: 04/01/13- SUBM DR: Rut Liang MD REQ: [id number] RECD: 04/01/13 STATUS: DANIA CAMPA DR: Eric Moscoso MD _ ORDERED: LEVEL III, LEVEL IV FINAL DIAGNOSIS 1. Skin, scalp, excision: A. Hemangioma. B. Lesion completely excised in the plane of section. 2. Soft tissue, left flank, excision: A. Mature adipose tissue compatible with benign lipoma. CLINICAL HISTORY No history given GROSS DESCRIPTION 1. The specimen is received in formalin labeled Divine Jarvis, Scalp Lesion and consists of an unoriented skin ellipse measuring 1.8 x 0.7 x 0.4 cm. The specimen is inked, serially sectioned along its short axis, and submitted entirely in one cassette. 2. The specimen is received in formalin labeled Divine Jarvis, Left Flank Mass and consists of a nodular, yellow, fibrofatty mass measuring 3.7 x 2.6 x 1.7 cm. Cut section demonstrates homogeneous, pale yellow, fatty tissue. No solid masses or areas or hemorrhage or necrosis are identified. Gasfitter section is submitted, one cassette. Signed (signature on file) Alvin Hooper MD 1444 END OF REPORT * ML=Testing performed at Main Lab DEPARTMENT OF PATHOLOGY, [address] [place] [address] Alvin Hooper M.D. Director [facility] Permit #[id number] 35 Serum levels of PSA measured using the Fabrizio Kirkwood DXI Hybritech immunoassay should not be interpreted as absolute evidence of the presence or absence of disease. The PSA value should be used in conjunction with other pertinent clinical diagnostic procedures. The values obtained with different assay methods or kits cannot be used interchangeably. 36 Please note the change in INR reference range effective 12. The INR(International Normalized Ratio) was adopted by the World Health Organization (WHO) in 1983 as a standardized system of reporting PT (Prothrombin Time). The Centers for Disease Control (CDC) states that reporting of PT results in INR only is the preferred method. Recommended INR for Patients on Oral Anticoagulants Prophylaxis 2.0 - 3.0 Treatment of thrombosis 2.0 - 3.0 Prevention of embolism 2.0 - 3.0 Prevention of embolism from prosthetic heart valves 2.5 - 3.5 37 Because ethnic data is not always readily available, this report includes an eGFR for both -Americans and non- Americans. The National Kidney Disease Education Program (NKDEP) does not endorse the use of the MDRD equation for patients that are not between the ages of 18 and 70, are , have extremes of body size, muscle mass, or nutritional status, or are non- or non-. According to the National Kidney Foundation, irrespective of diagnosis, the stage of the disease is based on the level of kidney function: Stage Description GFR(mL/min/1.73 m(2)) 1 Kidney damage with normal or decreased GFR 90 2 Kidney damage with mild decrease in GFR 60-89 3 Moderate decrease in GFR 30-59 4 Severe decrease in GFR 15-29 5 Kidney failure <15 (or dialysis) 38 ---- RUN DATE: 11/10/11 [facility] NMI LIVE PAGE 1 RUN TIME: 1243 Specimen Inquiry RUN USER: INTERFACE -- Name: SIMONADIVINE RODRIGUEZ Status: REG REF Re11/09/11 Age/Sex: 56/M Unit#: [id number] [facility] [birth year] -- Specimen: [id number] SOUT Spec Date:11/09/11 Dr: Yonathan chahal MD Spec Type: SURGICAL P Received:11/09/11-1324 Copies to: Eric Moscoso MD SPECIMEN 1) BIOPSY COLON POLYP AT 25 CM. 2) BIOPSY COLON POLYP AT 65 CM. HISTORY POST-OP DIAGNOSIS: To cecum - polyp at 65 cm. and 20 cm. - biopsied; no r esidual carcinoid CLINICAL INFORMATION: History of rectal carcinoid GROSS DESCRIPTION 1) The specimen is received in formalin labelled Divine Jarvis Jr., Biopsy Colon Polyp at 25 cm., and consists of two fragments of brown tissue each measuring 0.2 x 0.2 x 0.2 cm. Submitted entirely, one cassette labelled 1. 2) The specimen is received in formalin labelled Divine Jarvis Jr., Biopsy Colon Polyp at 65 cm., and consists of three fragments of yellow tissue measuring 0.6 x 0.3 x 0.2 cm. Submitted entirely, one cassette labelled 2. DIAGNOSIS 1) Colon, 25 cm., biopsy: Hyperplastic polyp. 2) Colon, 65 cm., biopsy: A. Tubular adenoma. B. No high grade dysplasia or malignancy. Signed Electronically by: ALVIN HOOPER MD 11/10/11 1241 -- -- DEPARTMENT OF PATHOLOGY, [address] [place] [address] [facility] Permit #[id number] Alvin Hooper M.D. Director Tara Ruiz M.D. Lunch Truck Operator Dir rochaor -- 39 CHOLESTEROL INTERPRETATION: Desirable: Less than 200 MG/DL Borderline-High Risk: 200-239 MG/DL High-Risk: 240 MG/DL and over 40 HDL INTERPRETATION: Undesirable: High Risk: Less than 40 MG/DL Desirable: Low Risk: Greater than 60 MG/DL 41 LDL INTERPRETATION: Low Risk Optimal Level: LDL Less than 100 MG/DL Near or Above Optimal: LDL 100-129 MG/DL Borderline High Risk: LDL 130-159 MG/DL High Risk: LDL 160-189 MG/DL Very High Risk: LDL Greater than 189 MG/DL 42 ---- RUN DATE: 11/18/09 [facility] NMI LIVE PAGE 1 RUN TIME: 1348 Specimen Inquiry RUN USER: INTERFACE -- Name: DIVINE JARVIS JR Status: REG REF Re11/16/09 Age/Sex: 54/M Unit#: [id number] Location: [address] [place] [address]. : 57 -- Specimen: [id number] SOUT Spec Date: 11/16/[address]: Yonathan evans MD Spec Type: SURGICAL P Received: 11/17/09-817 Copies to: Eric Moscoso MD SPECIMEN BIOPSY RECTAL NODULE HISTORY PRE-OP DIAGNOSIS: History of carcinoid POST-OP DIAGNOSIS: To 15 cm., scar seen - looks good. CLINICAL INFORMATION: Rectal carcinoid tumor. GROSS DESCRIPTION Specimen received in formalin labelled Divine Jarvis, Biopsy Rectal Nodule and consists of a john, soft tissue fragment measuring 0.3 x 0.2 x 0.1 cm. Submitted entirely, one cassette. DIAGNOSIS Colon, rectum, biopsy: Hyperplastic polyp. Signed Electronically by: ALVIN HOOPER MD 11/18/09 1347 -- -- DEPARTMENT OF PATHOLOGY, [address] [place] [address] [facility] Permit #[id number] Alvin Hooper M.D. Director Tara Ruiz M.D. Lunch Truck Operator Dir colleen -- 43 Anion gap measurement may be of limited value in the presence of any alkalosis, especially in a combined acid base disorder. . 44 Note change in reference range as of 12/19/07. The change was based on recommendations from the [place] [employer]. 45 Please note change in reference range effective 07 . 46 Because ethnic data is not always readily available, this report includes an eGFR for both -Americans and non- Americans. The National Kidney Disease Education Program (NKDEP) does not endorse the use of the MDRD equation for patients that are not between the ages of 18 and 70, are , have extremes of body size, muscle mass, or nutritional status, or are non- or non-. According to the National Kidney Foundation, irrespective of diagnosis, the stage of the disease is based on the level of kidney function: Stage Description GFR(mL/min/1.73 m(2)) 1 Kidney damage with normal or decreased GFR 90 2 Kidney damage with mild decrease in GFR 60-89 3 Moderate decrease in GFR 30-59 4 Severe decrease in GFR 15-29 5 Kidney failure <15 (or dialysis) 47 Anion gap measurement may be of limited value in the presence of any alkalosis, especially in a combined acid base disorder. . 48 Note change in reference range as of 12/19/07. The change was based on recommendations from the [employer]. 49 Please note change in reference range effective 07 . 50 A metabolite of Naproxen, O-desmethylnaproxen, has been shown to interfere with the [place] method for measuring total bilirubin. Samples from patients who have taken Naproxen have shown spurious elevation in total bilirubin levels. 51 Because ethnic data is not always readily available, this report includes an eGFR for both -Americans and non- Americans. The National Kidney Disease Education Program (NKDEP) does not endorse the use of the MDRD equation for patients that are not between the ages of 18 and 70, are , have extremes of body size, muscle mass, or nutritional status, or are non- or non-. According to the National Kidney Foundation, irrespective of diagnosis, the stage of the disease is based on the level of kidney function: Stage Description GFR(mL/min/1.73 m(2)) 1 Kidney damage with normal or decreased GFR 90 2 Kidney damage with mild decrease in GFR 60-89 3 Moderate decrease in GFR 30-59 4 Severe decrease in GFR 15-29 5 Kidney failure <15 (or dialysis) 52 New Reference Range and Interpretation effective 01/31/2002 TnI (ng/ml) INTERPRETATION Less Than 0.06 ng/mL NOT SUPPORTIVE OF DIAGNOSIS OF PR 0.06 - 0.50 ng/ml INDETERMINATE: SUGGEST SERIAL STUDIES IF CLINICALLY INDICATED. Greater than 0.5 ng/mL CONSISTENT WITH DIAGNOSIS OF PR . 53 ---- RUN DATE: 05/28/09 [facility] NMI LIVE PAGE 1 RUN TIME: 1648 Specimen Inquiry RUN USER: INTERFACE -- Name: DIVINE JARVIS JR Status: REG REF Re05/25/09 Age/Sex: 54/M Unit#: [id number] Location: [address] [place] [address].O.B. : 57 -- Specimen: [id number] SOUT Spec Date: 05/25/[address]: Yonathan evans MD Spec Type: SURGICAL P Received: 05/26/0985 Copies to: Eric Moscoso MD SPECIMEN RECTAL NODULE BIOPSY HISTORY POST-OP DIAGNOSIS: Colon to terminal ileum - rectal nodule CLINICAL INFORMATION: Screening colonoscopy GROSS DESCRIPTION Specimen received in formalin labelled Divine Milewski, Rectal Nodule and consists of two fragments of john-brown tissue ranging in size from 0.4 to 0.8 x 0.3 x 0.3 cm. Submitted entirely, one cassette. DIAGNOSIS Rectum, biopsy: Carcinoid tumor, 2mm in size, with no mitotic activity and no cytologic atypia (see comment) COMMENT The small carcinoid (2 mm) is seen underneath an intact colonic mucosa, in the submucosa and muscularis mucosae. It has no mitotic activity and no necrosis. Immunohistochemical stains perfomed with appropriate controls for synaptophysin is positive (chromogranin is negative), supporting the above rendered diagnosis. Signed Electronically by: TARA RUIZ 05/28/09 1648 -- -- DEPARTMENT OF PATHOLOGY, [address] [place] [address] [facility] Permit #[id number] Alvin Hooper M.D. Director Tara uRiz M.D. Lunch Truck Operator colleen -- 54 * SERUM LEVELS OF PSA MEASURED USING THE FABRIZIO Polatis ACCESS HYBRITECH IMMUNOASSAY SHOULD NOT BE INTERPRETED ABSOLUTE EVIDENCE OF THE PRESENCE OR ABSENCE OF DISEASE. THE PSA VALUE SHOULD BE USED IN CONJUNCTION WITH OTHER PERTINENT CLINICAL DIAGNOSTIC PROCEDURES. 55 CHOLESTEROL INTERPRETATION: Desirable: Less than 200 MG/DL Borderline-High Risk: 200-239 MG/DL High-Risk: 240 MG/DL and over 56 HDL INTERPRETATION: Undesirable: High Risk: Less than 40 MG/DL Desirable: Low Risk: Greater than 60 MG/DL 57 LDL INTERPRETATION: Low Risk Optimal Level: LDL Less than 100 MG/DL Near or Above Optimal: LDL 100-129 MG/DL Borderline High Risk: LDL 130-159 MG/DL High Risk: LDL 160-189 MG/DL Very High Risk: LDL Greater than 189 MG/DL 58 CHOLESTEROL INTERPRETATION: Desirable: Less than 200 MG/DL Borderline-High Risk: 200-239 MG/DL High-Risk: 240 MG/DL and over 59 HDL INTERPRETATION: Undesirable: High Risk: Less than 40 MG/DL Desirable: Low Risk: Greater than 60 MG/DL 60 LDL INTERPRETATION: Low Risk Optimal Level: LDL Less than 100 MG/DL Near or Above Optimal: LDL 100-129 MG/DL Borderline High Risk: LDL 130-159 MG/DL High Risk: LDL 160-189 MG/DL Very High Risk: LDL Greater than 189 MG/DL 61 * SERUM LEVELS OF PSA MEASURED USING THE FABRIZIO Polatis ACCESS HYBRITECH IMMUNOASSAY SHOULD NOT BE INTERPRETED ABSOLUTE EVIDENCE OF THE PRESENCE OR ABSENCE OF DISEASE. THE PSA VALUE SHOULD BE USED IN CONJUNCTION WITH OTHER PERTINENT CLINICAL DIAGNOSTIC PROCEDURES. 62 * SERUM LEVELS OF PSA MEASURED USING THE FABRIZIO Polatis ACCESS HYBRITECH IMMUNOASSAY SHOULD NOT BE INTERPRETED ABSOLUTE EVIDENCE OF THE PRESENCE OR ABSENCE OF DISEASE. THE PSA VALUE SHOULD BE USED IN CONJUNCTION WITH OTHER PERTINENT CLINICAL DIAGNOSTIC PROCEDURES. 63 Anion gap measurement may be of limited value in the presence of any alkalosis, especially in a combined acid base disorder. . 64 Classification: Borderline High . 65 CALCULATED LDL APPROXIMATES THE VALUE OF A DIRECT LDL MEASUREMENT. Classification: Borderline High . Procedures Date Code Description Status 06/15/2017 85299 Brief Emotional/Behav Assessment W/ Scoring Doc Per Completed Standard Inst 10/28/2016 70269477 Colonoscopy Completed 06/02/2014 58566 Electrocardiogram Complete Completed 01/06/2014 85277 SC/Im Injections Completed 06/05/2012 32976 Electrocardiogram Complete Completed 04/05/2012 92520 X-Ray Knee,Ap&Lateral Oblique Views Completed 02/07/2011 38396 Electrocardiogram Complete Completed 07/06/2009 18669 Electrocardiogram Complete Completed 09/24/2007 84907 Anoscopy Diagnostic Completed 07/03/2006 54844 Electrocardiogram Complete Completed Encounters Type Date Location Provider Dx Diagnosis Office Visit 02/08/2018 Main Office Eric Moscoso, M25.551 Pain in right hip 1:45p M.D. K40.90 Unil inguinal hernia, w/o obst or gangr, not spcf as recur Office Visit 12/26/2017 3:30p Main Office Eric Moscoso, Z23 Encounter for M.D. immunization M25.551 Pain in right hip Z23 Encounter for immunization Office Visit 06/15/2017 9:45a Main Office Eric Moscoso, Z00.00 Encntr for M.D. general adult medical exam w/o abnormal findings Z86.010 Personal history of colonic polyps R03.0 Elevated blood-pressure reading, w/o diagnosis of htn Z80.42 Family history of malignant neoplasm of prostate R97.20 Elevated prostate specific antigen [PSA] Z23 Encounter for immunization Z71.89 Other specified counseling Z13.89 Encounter for screening for other disorder Office Visit 06/13/2016 10:30a Main Office Eric Moscoso, Z00.01 Encounter for M.D. general adult medical exam w abnormal findings Z12.5 Encounter for screening for malignant neoplasm of prostate R03.0 Elevated blood-pressure reading, w/o diagnosis of htn Z86.010 Personal history of colonic polyps Z13.220 Encounter for screening for lipoid disorders R31.0 Gross hematuria R31.9 Hematuria, unspecified Office Visit 12/29/2015 1:45p Main Office Eric Moscoso, R31.0 Gross hematuria M.D. R31.9 Hematuria, unspecified Office Visit 10/21/2015 4:30p Main Office Gary Molina, R31.9 Hematuria , D.O. unspecified Office Visit 06/29/2015 12:55p Main Office Eric Moscoso, R10.32 Left lower quadrant M.D. pain Office Visit 06/08/2015 10:30a Main Office Eric Moscoso, Z00.00 Encntr for general M.D. adult medical exam w/o abnormal findings R03.0 Elevated blood-pressure reading, w/o diagnosis of htn Z80.42 Family history of malignant neoplasm of prostate Z12.5 Encounter for screening for malignant neoplasm of prostate E78.0 Pure hypercholesterolemia Office Visit 02/22/2015 10:15a Main Office Danis, R03.0 Elevated Mariela Reyes blood-pressure reading, w/o diagnosis of htn Z80.42 Family history of malignant neoplasm of prostate Z12.5 Encounter for screening for malignant neoplasm of prostate E78.0 Pure hypercholesterolemia Office Visit 07/28/2014 2:00p Main Office Gary Molina, 691.8 Dermatitis Atopic & D.O. Related Conditions Other 466.0 Bronchitis Acute 401.1 Hypertension Benign Office Visit 06/02/2014 10:30a Main Office Eric Moscoso, V70.0 Examination General M.D. Medical Routine AT Health Care Facility 401.1 Hypertension Benign 272.0 Hypercholesterolemia Pure V16.42 Family History Malignant Neoplasm Prostate V76.44 Screening For Malig Alex Prostate 596.51 Hypertonicity Bladder 788.63 Urgency Of Urination 788.43 Nocturia 724.5 Backache Unspec Office Visit 01/06/2014 11:30a Main Office Gary Molina, 692.6 Dermatitis Contact D.O. Due To Plants (Except Food) Office Visit 12/16/2012 1:15p Main Office Danis 715.15 Osteoarthralejandro Reyes M.D. Localized Prim Pelvic & Thigh 796.2 Blood Pressure Reading Elevated W/O Hypertension V76.44 Screening For Malig Alex Prostate V16.42 Family History Malignant Neoplasm Prostate v06.1 Smgbehbzop-Ouxsyxz-Obgzhptj Combined (DTaP) v07.2 Prophylactic Immunotherapy V05.8 Single Disease Spec Other Vaccination & Inoculation Office Visit 06/05/2012 9:45a Main Office Amy Moscoso.15 Osteoarthralejandro Reyes M.D. Localized Prim Pelvic & Thigh V72.84 Examination Preoperative Unspec 401.1 Hypertension Benign Office Visit 04/05/2012 1:30p Main Office Melissa Moscoso5.16 Osteoarthrosis Mariela Reyes Localized Prim Lower Leg 715.15 Osteoarthrosis Localized Prim Pelvic & Thigh 719.46 Pain Joint Lower Leg Office Visit 03/20/2012 4:15p Main Office Eric Moscoso, 785.6 Lymph Nodes M.D. Enlargement Office Visit 02/07/2011 10:30a Main Office Eric Moscoso, V70.0 Examination General M.D. 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 Reading Elevated W/O Hypertension V76.51 Special Screening For Malignant Neoplasms Colon V76.44 Screening For Malig Alex Prostate V16.42 Family History Malignant Neoplasm Prostate 272.0 Hypercholesterolemia Pure V65.49 Counseling Other Spec V70.0 Examination General Medical Routine AT Health Care Facility 715.15 Osteoarthrosis Localized Prim Pelvic & Thigh 715.16 Osteoarthrosis Localized Prim Lower Leg Office Visit 11/17/2008 3:45p Main Office Eric Moscoso, 719.45 Pain Joint M.D. Pelvic Region & Thigh 719.46 Pain Joint Lower Leg 796.2 Blood Pressure Reading Elevated W/O Hypertension Office Visit 12/02/2007 2:00p Main Office Eric Moscoso, V70.0 Examination General M.D. Medical Routine AT Health Care Facility V77.91 Screening For Lipoid Disorders V76.44 Screening For Malig Alex Prostate Office Visit 09/24/2007 10:00a Main Office Eric Moscoso M.D. 565.0 Anal Fissure V76.51 Special Screening For Malignant Neoplasms Colon Office Visit 07/01/2007 9:15a Main Office Eric Moscoso, 466.0 Bronchitis Acute M.D. 786.2 Cough Office Visit 07/03/2006 8:55a Main Office Eric Moscoso, V70.0 Examination General M.D. Medical Routine AT Health Care Facility V77.91 Screening For Lipoid Disorders V76.44 Screening For Malig Alex Prostate 401.1 Hypertension Benign V16.42 Family History Malignant Neoplasm Prostate V76.51 Special Screening For Malignant Neoplasms Colon Plan of Treatment Future Appointment(s):06/18/2018 10:30 am - Eric Moscoso M.D. at Main Kcxarx5302/08/2018 - Eric Moscoso M.D.M25.551 Pain in right hipComments:R groin pain suspect secondary to RIH. Will refer to surgeon. Advised to avoid heavy lifting etc. ADvised to seek ER care if having protracted pain not relieved by sitting.K40.90 Unilateral inguinal hernia, without obstruction or gangrene,Referral:Rut Liang MD, Surgery,General
[2018-02-09] MEDS ORDERED: Morphine INJ** 4 MG/ML 1 ML CARPUJECT IV ONE (19:46)
[2018-02-09] MEDS ORDERED: Morphine INJ* 4 MG/ML 1 ML SYRINGE (NEW SYRINGE VERSION) ONE (19:50)
--- NOTE | 2018-02-09 20:00 | RAD ---
CPT II: CPT II Codes: 3100F Indication: Elevated d-dimer. Contrast: Administered 80.3 ml of VISAPAQUE 320 mg/ml CTA of the neck and head was performed after IV contrast administration. Coronal and sagittal reconstructed images were obtained. There is fluid surrounding the aortic arch. Prior CTA of the chest demonstrates a ascending aortic aneurysm and this may be hemorrhage from ascending aortic aneurysm. The origins of the great vessels are unremarkable. The common carotid arteries are otherwise unremarkable. Calcific plaque is noted at the carotid bulb extending into the internal carotid arteries The internal carotid arteries in the neck demonstrates no evidence of carotid artery dissection. Vertebral arteries are patent. The intracranial vessels demonstrates normal anterior and posterior cerebral arteries. No aneurysmal dilatation is noted. No branch occlusion is identified. The posterior cerebral artery, basilar artery are otherwise unremarkable. The orbits are otherwise unremarkable. IMPRESSION: No evidence of aneurysmal dilatation or branch occlusion is noted. Atherosclerosis at the origin of the left internal carotid artery. Less than 50% stenosis of left internal carotid artery. No significant stenosis of the right internal carotid artery Dr. Salvador was given a preliminary report of the CTA of the chest demonstrating a ascending aortic aneurysm measuring up to 7.5 cm with likely mediastinal hemorrhage and moderate to large pericardial effusion.
[2018-02-09] MEDS ORDERED: Metoclopramide IV* 5 MG/ML 2 ML VIAL ONE (20:05)
[2018-02-09] MEDS ORDERED: Metoclopramide IV* 5 MG/ML 2 ML VIAL IV ONE ×2 (20:09→20:10)
--- NOTE | 2018-02-09 20:18 | RAD ---
EXAM: CT Angiography Chest With Intravenous Contrast EXAM DATE/TIME: 02/09/2018 7:00 PM CLINICAL HISTORY: 62 years old, male; Signs and symptoms; Other: R neck pain, SOB; Additional info: Elevated dimer TECHNIQUE: Axial computed tomographic angiography images of the chest with intravenous contrast using CT angiography protocol. All CT scans at this facility use at least one of these dose optimization techniques: automated exposure control; mA and/or kV adjustment per patient size (includes targeted exams where dose is matched to clinical indication); or iterative reconstruction. Coronal and sagittal reformatted images were created and reviewed. MIP reconstructed images were created and reviewed. CONTRAST: 79 ml of visi 320 administered intravenously. COMPARISON: No relevant prior studies available. FINDINGS: Pulmonary arteries: Normal. No pulmonary emboli. Aorta: The ascending aorta is markedly dilated measuring approximately 6.7 cm AP and 7.1 cm with periaortic and mediastinal stranding. The descending thoracic aorta is normal in caliber. Assessment is limited by timing of the contrast bolus, and no contrast is present in the aorta. Lungs: Normal. No consolidation. No masses. Pleural space: Normal. No pneumothorax. No pleural effusion. Heart and mediastinum: There is mass effect on the left atrium by the large ascending aortic aneurysm. Overall heart size is normal. There is stranding in the periaortic and upper mediastinal fat and moderate intermediate density pericardial fluid, likely hemopericardium measuring up to 1.5 cm in thickness. No evidence of tamponnade physiology. Bones/joints: Dependent atelectasis bilaterally. No consolidation or mass. Soft tissues: Unremarkable. Lymph nodes: Unremarkable. No enlarged lymph nodes. Upper abdomen: There is layering of high density contrast in the hepatic veins and IVC. Small cortical hypodensity upper pole of left kidney, likely a small cyst. Small hiatal hernia. IMPRESSION: 1. Leaking versus ruptured ascending aortic aneurysm with hemopericardium. Recommend immediate cardiothoracic surgery evaluation. 2. No pulmonary embolus 3. Other non-emergent findings as above. To contact [facility] with a general question: Operations Center - [phone] For direct physician to physician contact: Physician Hotline - [phone] [facility] ([facility] Facility ID #[id number])
[2018-02-09 21:05] VITALS: BP 123/64
[2018-02-09] MEDS ORDERED: Morphine INJ* 4 MG/ML 1 ML SYRINGE (NEW SYRINGE VERSION) IV ONE (21:09)
== END 2018-02-09 21:04 | disposition short-term general hospital (02) ==
LOC: ED 17:35
DX: I71.2 Thoracic aortic aneurysm, without rupture (principal); R06.02 Shortness of breath; H53.9 Unspecified visual disturbance; R42 Dizziness and giddiness; R11.0 Nausea; R53.1 Weakness; R61 Generalized hyperhidrosis; Z79.82 Long term (current) use of aspirin; Z88.5 Allergy status to narcotic agent
CPT/HCPCS: 36415; 70496; 70498; 71275; 80053; 83605; 83735; 83880; 84484; 85025; 85379; 85610; 86850; 86900; 86901; 86922; 93005; 96361; 96366; 96374; 96375; 99285; J2270; J2405; J2765; P9040; Q9967

== ENCOUNTER 2018-05-28 05:48 | Day surgery (SDC) | payer BC ==
--- NOTE | 2018-05-14 07:22 | HP ---
CC: Dr. Eric Moscoso; Dr. Glen Anton * ADMISSION HISTORY AND PHYSICAL: DATE OF ADMISSION: 05/28/18 ATTENDING SURGEON: Dr. Levi Dumont * (FOREST Anderson, dictating). CHIEF COMPLAINT: Right inguinal hernia. HISTORY OF PRESENT ILLNESS: This is a 63-year-old male who around 02/08/18 noted a lump in his right groin with some associated discomfort. He was seen by his primary care physician who referred him for evaluation. Soon thereafter , he was transferred from [facility] to [facility] for emergent treatment of a dissecting aorta (he underwent median sternotomy with replacement of the aortic valve [bioprosthetic Porcine valve] and placement of ascending aortic graft 02/09/18). During the next 2 months, the patient has noticed increase in the size of the hernia as well as accompanying discomfort, though no signs or symptoms to suggest incarceration or strangulation. He specifically denies any GI or changes or symptoms. He has been using a truss with some benefit. He was seen in the office by Dr. Dumont on 04/11/18, at which time physical exam confirmed the presence of a reducible right inguinal hernia. There was no hernia noted on the left. Dr. Dumont discussed with him the indication, risks, and benefits of repair as well as the options thereof. The patient would like to proceed as scheduled with open repair of right inguinal hernia with mesh. He was seen most recently by Dr. Anton for cardiology followup in March with repeat echocardiogram on 05/06/18 (see attached). PAST MEDICAL HISTORY: Hypertension, status post aortic valve replacement, and repair of dissecting ascending aorta as noted above. Other previous surgeries include left total hip replacement and left wrist surgery as a teenager. He is also status post vasectomy. CURRENT MEDICATIONS: 1. Aspirin 81 mg once daily, which he will stay on during the perioperative period. 2. Labetalol 100 mg one-half tablet b.i.d. 3. Folic acid 1 mg once daily. 4. Osteo Bi-Flex 250/200 two tablets q.a.m. 5. Vitamin D 2000 International Units 2 tablets daily. 6. Tramadol 50 mg p.r.n. (has not been needing lately). 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 FAMILY HISTORY: Prostate cancer in his father and brother. No family history of anesthesia problems, bleeding, or clotting disorders. SOCIAL HISTORY: The patient is . 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 He denies tobacco use He drinks on average one drink per week. He denies any other recreational drug use. REVIEW OF SYSTEMS: General: No recent constitutional symptoms or acute illnesses other than described in the HPI and past medical history above. HEENT : No problems reported. Cardiovascular: See attached from Dr. Anton. Normal nuclear exercise stress test on 03/15/18. Echocardiogram from around that time did show a significant pericardial effusion which was significantly reduced on the repeat echo from 05/06/18. The patient denies any chest pain, palpitations , or lightheadedness. Respiratory: No shortness of breath or cough. GI: No problems reported. Colonoscopy done 2017 reported as normal. : No problems reported. Possible history of BPH, though he states that at the present time he is not experiencing any symptoms including nocturia. Endocrine: No diabetes or thyroid dysfunction. Musculoskeletal: No additions. Neuro/psych: No additions. Remainder of review of systems is negative. PHYSICAL EXAMINATION GENERAL: A well-nourished, well-developed male, in no acute distress. VITAL SIGNS: Height 5 feet 9 inches, weight 184 pounds, temperature 98, blood pressure 152/90, pulse 72, respirations 18. HEENT: Pupils equal and round, reactive. EOMs intact. No conjunctival pallor. Oropharynx, teeth in good repair. No intraoral lesions. NECK: No lymphadenopathy, thyromegaly, or masses. LUNGS: Clear to auscultation. No rales or wheezes. HEART: Regular rate and rhythm. No murmurs appreciated. Well-healed median sternotomy incision. ABDOMEN: Soft, nontender to palpation. No palpable masses or organomegaly with exception of the right groin budge per Dr. Dumont' exam. EXTREMITIES: No edema. GENITALIA: Not examined. RECTAL: Not done. BACK: No spinous process or CVA tenderness. NEUROLOGICAL: Grossly intact. SKIN: Warm and dry. No suspicious rashes or lesions. IMPRESSION: Right inguinal hernia. PLAN: Open repair of right inguinal hernia with mesh. CHRISTOPHER [place], [place] [id number]/[facility] #: [id number] TEAGAN
[~2018-05-28 05:48] MED LIST: Buffered Lidocaine 1% SYRIN* 1 ML/SYRINGE INTRADERM ONE
[2018-05-28] MEDS ORDERED: Lactated Ringers 1000 ML Bag* 1,000 ML IV SCH (06:00)
[2018-05-28] MEDS ORDERED: ceFAZolin 2 GM PREMIX in ORs 2 GM/50 ML BAG IVPB ONE (06:46)
[2018-05-28] MEDS ORDERED: Midazolam* 1 MG/ML 5 ML VIAL (5 MG) ONE ×2 (07:22→07:41)
[2018-05-28] MEDS ORDERED: fentaNYL* 50 MCG/ML 2 ML VIAL (100 MCG VIAL) ONE (07:33)
[2018-05-28] MEDS ORDERED: Bupivacaine 0.5% W/EPI SDV* 30 ML VIAL ONE (07:38)
[2018-05-28] MEDS ORDERED: Lidocaine 1% INJ* 10 MG/ML 30 ML SDV ONE (07:38)
[2018-05-28] MEDS ORDERED: Propofol* 10 MG/ML 20 ML BTL ONE (07:38)
[2018-05-28] MEDS ORDERED: Naloxone* 0.4 MG/ML 1 ML VIAL IV PRN (08:13)
[2018-05-28] MEDS ORDERED: HYDROcodone/ACETAMIN 5-325 MG* 1 TAB PO PRN (08:13)
[2018-05-28] MEDS ORDERED: Acetaminophen IV 1GM/100ML * 1,000 MG/100 ML VIAL IVPB ONE (08:13)
[2018-05-28] MEDS ORDERED: fentaNYL* 50 MCG/ML 2 ML VIAL (100 MCG VIAL) IV PRN (08:13)
[2018-05-28] MEDS ORDERED: Ondansetron INJ* 2 MG/ML VIAL IV PRN (08:13)
[2018-05-28] MEDS ORDERED: DiMENhydriNATE IV* 50 MG/ML VIAL IV PUSH PRN (08:13)
[2018-05-28] MEDS ORDERED: HYDROmorphone INJ1* 1 MG/ML SYRINGE IV PRN (08:13)
[2018-05-28] MEDS ORDERED: Ondansetron INJ* 2 MG/ML VIAL ONE (08:23)
[2018-05-28] MEDS ORDERED: Dexamethasone IV* 4 MG/ML 1 ML (4 MG) ONE (08:23)
--- NOTE | 2018-05-28 08:47 | OP ---
Operative Report - Blank - Operative Report Date of Operation: 05/28/18 Note: Brief Operative Note Preop Dx: Right Inguinal Hernia Postop Dx: same, indirect Procedure: open repair RIH w/ mesh Anesthesia: local MAC Surgeon: Tim Steel Rule Die Maker: FOREST Rodrigues Fluids: 1200 ml RL EBL: < 20 ml Specimen: none Drains: none Findings: dictated
[2018-05-28 09:14] VITALS: BP 143/85
[2018-05-28] MEDS ORDERED: Acetaminophen IV 1GM/100ML * 100 ML ONE (09:15)
--- NOTE | 2018-05-30 00:07 | OP ---
CC: Eric Moscoso MD; Glen Anton MD * DATE OF OPERATION: 05/28/18 - [facility] DATE OF : 57 SURGEON: Levi Dumont MD ANIMAL TRAINER: FOREST Anderson ANESTHESIOLOGIST: Dr. Martinez. ANESTHESIA: Local MAC. PRE-OP DIAGNOSIS: Right inguinal hernia. POST-OP DIAGNOSIS: Right inguinal hernia. OPERATIVE PROCEDURE: Open repair of right inguinal hernia with mesh. ESTIMATED BLOOD LOSS: Less than 20 mL. IV FLUIDS: 1.2 L crystalloid. SPECIMENS: None. DRAINS: None. COMPLICATIONS: None. COUNTS: The instrument, needle, and sponge counts were correct. DESCRIPTION OF PROCEDURE: The patient was brought to the operating room and placed on the table supine. Sequential compression devices were placed on both lower extremities. Intravenous sedation was administered. His abdomen was prepped and draped in the usual sterile fashion and a time-out was performed. Local anesthetic was infiltrated as a field block in the right groin. An oblique incision was created using a scalpel and subcutaneous tissues were divided with cautery. The external oblique aponeurosis was identified and additional anesthetic was infiltrated beneath this and then the aponeurosis was opened along the line of its fibers through the superficial ring. The contents of the inguinal canal were isolated using a Reed drain at the level of the pubic tubercle. Candidate for the ilioinguinal nerve that was identified was ultimately divided and ligated with 4-0 absorbable tie. The patient was noted to have an indirect inguinal hernia and the cord structures were dissected away from the sac. The sac was opened to identify that there were no sliding components and then it was twisted upon itself, ligated with 2-0 absorbable suture ligature. There was no evidence of direct hernia. Decision was made to repair the hernia with the Medtronic ProGrip mesh right-sided patch. This was placed in the usual fashion ensuring that the mesh cover the entire floor of the canal and the securing flap the external ring was carefully placed snugly around the cord. After ensuring excellent coverage, the external oblique aponeurosis was run closed with 2-0 Vicryl. Christel's was closed with 3- 0 Vicryl in interrupted fashion. Skin was closed with 4-0 Monocryl in running subcuticular fashion. Steri-Strips were applied. The patient tolerated the procedure well and was transferred to Recovery in stable condition. [id number]/[facility] #: [id number] TEAGAN
== END 2018-05-28 09:48 | disposition home or self-care (01) ==
LOC: OR 05:48
PROVIDERS: ATTEND Surgery
DX: K40.90 Unilateral inguinal hernia, without obstruction or gangrene, not specified as recurrent (principal); I10 Essential (primary) hypertension; Z95.2 Presence of prosthetic heart valve
CPT/HCPCS: C1781; J0690; J1100; J2250; J2405; J2704; J3010

== ENCOUNTER 2019-03-11 10:30 | Inpatient (IN) | payer BC ==
[2019-03-17] MEDS ORDERED: Buffered Lidocaine 1% SYRIN* 1 ML/SYRINGE INTRADERM ONE (13:49)
[2019-03-18] MEDS ORDERED: Tranexamic Acid 1,000 MG in NS 0.9% 50 ML* (outpatient use) IV SCH ×2
[2019-03-18] MEDS ORDERED: Acetaminophen TAB* 325 MG PO ONE (06:00)
[2019-03-18] MEDS ORDERED: Famotidine IV* 10 MG/ML 2 ML (20 mg) IV ONE (06:00)
[2019-03-18] MEDS ORDERED: Lactated Ringers 1000 ML Bag* 1,000 ML IV SCH (06:00)
[2019-03-18] MEDS ORDERED: Ibuprofen TAB* 400 MG PO ONE (06:00)
--- OUTSIDE RECORDS SUMMARY | 2019-03-18 08:22 | XMS REPORT | Continuity of Care Document ---
:1955 External Reference #:[id number] Author Name Eric Moscoso M.D. 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 Onset: 07/03/2006 Heart valve replacement Eric Moscoso M.D. Onset: 10/01/2018 Essential hypertension Eric Moscoso M.D. Onset: 10/01/2018 Social History Type Date Description Comments Sex Unknown Tobacco Use Reviewed: 02/21/19 Never Smoked Cigarettes Smoking Status Reviewed: 02/21/19 Never Smoked Cigarettes ETOH Use Rare Alcohol Use Allergies, Adverse Reactions, Alerts Active Allergies Reaction Severity Comments Date Oxycodone [place] depressed 12/16/2012 Inactive Allergies NKDA 07/03/2006 Medications Active Medications SIG Qnty Indications Ordering Date Provider Chlorthalidone take one tablet 90tabs I10 Eric Moscoso, 01/14/2019 25mg Tablets by mouth every M.D. morning for high blood pressure Labetalol HCL take 1/2 tablet 90tabs I10 Eric Moscoso, 02/15/2018 100mg Tablets by mouth every M.D. 12 hours for high blood pressure Vitamin D 2 po daily Unknown 06/12/2016 4000Iu Hydrocortisone apply twice a 59ml 691.8 Gary Molina, 07/28/2014 2.5% Lotion day as needed D.O. Osteo Bi-Flex Eric Moscoso, 02/06/2011 Tablets M.D. Multi-Vitamin 1 qd Eric Moscoso, 12/02/2007 Tablets M.DKay Medications Administered in Office Medication SIG Qnty Indications Ordering Provider Date injection, kenalog, 10 mg Gary Molina D.OKay 01/06/2014 Injection SC/Im Injections Gary Molina D.OKay 01/06/2014 Injection Immunizations CPT Code Status Date Vaccine Lot # [id number] Given 01/14/2019 Influenza Virus Vaccine, Quadrivalent, Split, Preservative Free 25602 Given 12/26/2017 Influenza Virus Vaccine, Quadrivalent, Split, [id number] Preservative Free 07785 Given 10/25/2017 Shingrix Zoster (Shingles) Vaccine (HZV) [id number] Recomb,Subnit,Adjuvanted 02556 Given 08/29/2017 Shingrix Zoster (Shingles) Vaccine (HZV) [id number] Recomb,Subnit,Adjuvanted 71279 Given 06/15/2017 Influenza Virus Vaccine, Quadrivalent, Split, [id number] Preservative Free 48433 Given 12/16/2012 Zostavax [id number] 57980 Given 02/07/2011 Adacel or Boostrix, TDaP [id number] 46459 Given 08/29/1999 Td Immunization 15960 Refused 02/07/2011 Flu, Split Virus 3Yrs 96946 Refused 02/22/2009 Flu, Split Virus 3Yrs Vital Signs Date Vital Result Comment 02/21/2019 11:22am BP Systolic 130 mmHg BP Diastolic 80 mmHg BP Systolic Recheck 146 mmHg R arm sitting BP Diastolic Recheck 94 mmHg R arm sitting Heart Rate 54 /min O2 % BldC Oximetry 97 % Body Temperature 98.1 F Height 69.50 inches 5'9.50" Weight 195.00 lb BMI (Body Mass Index) 28.4 kg/m2 01/14/2019 2:35pm BP Systolic 142 mmHg BP Diastolic 80 mmHg BP Systolic Recheck 144 mmHg R arm sitting BP Diastolic Recheck 80 mmHg R arm sitting Weight 196.00 lb Results Test Acquired Date Facility Test Result H/L Range Note Urine Micro Inhouse 02/21/2019 In House [facility] WBC 8 1 Ua RBC - Ua Casts - Ua Epi - Ua Other - Ua Glucose - Ua Bilirubin - Ua Ketones - Ua Specific [place] 1.020 Ua Blood - Ua PH 6.0 Ua Protein - Ua Urobilinogen - Ua Nitrite - Ua Leukocytes Tr Basic Metabolic Panel 02/03/2019 [facility] Sodium 139 mmol/L Normal 135-145 [phone] Potassium 4.3 mmol/L Normal 3.5-5.0 Chloride 100 mmol/L Low 101-111 Co2 Carbon Dioxide 32 mmol/L Normal 22-32 Anion Gap 7 mmol/L Normal 2-11 Glucose 70 mg/dL Normal 70-100 Blood Urea Nitrogen 16 mg/dL Normal 6-24 Creatinine 0.99 mg/dL Normal 0.67-1.17 BUN/Creatinine Ratio 16.2 Normal 8-20 Calcium 9.8 mg/dL Normal 8.6-10.3 Egfr Non- 76.6 >60 Egfr 92.7 >60 2 Laboratory test 09/05/2018 [facility] PSA Diagnostic 2.047 ng/mL 0- 4.0 3 finding [phone] 1 Void, clear, gold 2 Because ethnic data is not always readily [...] 15-29 5 Kidney failure <15 (or dialysis) 3 Serum levels of PSA measured using the StrikeIron DXI Hybritech immunoassay should not be interpreted as absolute evidence of the presence or absence of disease. The PSA value should be used in conjunction with other pertinent clinical diagnostic procedures. The values obtained with different assay methods or kits cannot be used interchangeably. Procedures Date Code Description Status 10/28/2016 33621982 Colonoscopy Completed Medical Devices Description No Information Available Encounters Type Date Location Provider Dx Diagnosis Office Visit 02/21/2019 Main Office Eric Moscoso Z01.818 Encounter for other 11:30a M.DKay preprocedural examination M16.11 Unilateral primary osteoarthritis, right hip I10 Essential (primary) hypertension Z95.2 Presence of prosthetic heart valve Z68.28 Body mass index (BMI) 28.0-28.9, adult Office Visit 01/14/2019 2:00p Main Office Eric Moscoso I10 Essential (primary) M.DKay hypertension I71.01 Dissection of thoracic aorta M25.551 Pain in right hip M16.11 Unilateral primary osteoarthritis, right hip Z23 Encounter for immunization Office Visit 10/01/2018 3:30p Main Office Eric Moscoso, Z00.00 Encntr for MKayDKay general adult medical exam w/o abnormal findings I10 Essential (primary) hypertension Z95.2 Presence of prosthetic heart valve Z68.29 Body mass index (BMI) 29.0-29.9, adult Assessments Date Code Description Provider 02/21/2019 Z01.818 Encounter for other preprocedural Eric Moscoso M.D. examination 02/21/2019 M16.11 Unilateral primary osteoarthritis, right hip Eric Moscoso M.D. 02/21/2019 I10 Essential (primary) hypertension Eric Moscoso M.D. 02/21/2019 Z95.2 Presence of prosthetic heart valve Eric Moscoso M.D. 02/21/2019 Z68.28 Body mass index (BMI) 28.0-28.9, adult Eric Moscoso M.D. 01/14/2019 I10 Essential (primary) hypertension Eric Moscoso M.D. 01/14/2019 I71.01 Dissection of thoracic aorta Eric Moscoso M.D. 01/14/2019 M25.551 Pain in right hip Eric Moscoso M.D. 01/14/2019 M16.11 Unilateral primary osteoarthritis, right hip Eric Moscoso M.D. 01/14/2019 Z23 Encounter for immunization Eric Moscoso M.D. 10/01/2018 Z00.00 Encounter for general adult medical Eric Moscoso M.D. examination without abno 10/01/2018 I10 Essential (primary) hypertension Eric Moscoso M.D. 10/01/2018 Z95.2 Presence of prosthetic heart valve Eric Moscoso M.D. 10/01/2018 Z68.29 Body mass index (BMI) 29.0-29.9, adult Eric Moscoso M.D. Plan of Treatment Future Appointment(s):10/14/2019 8:55 am - Eric Moscoso M.D. at Main Kpxexo6502/21/2019 - Eric Moscoso M.D.Z01.818 Encounter for other preprocedural examinationComments:Pt is medically stable and w/o overt signs or symptoms concerning for coronary disease. He has HTN with improved (now borderline) control since starting chlorthalidone last month. There is no reason toincrease his antihypertensive regimen now but this is something we will look at after he recovers from hip surgery.WRT activity tolerance, he can easily exercise to >4 METs w/o Sxs.Pt may proceed with the planned surgery. 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 Reassess after surgery.Given his Hx of aortic dissection his BP goal is lowerthan for most.Z95.2 Presence of prosthetic heart mmagoW34.28 Body mass index (BMI) 28.0- 28.9, adult Functional Status Description No Information Available Mental Status Description No Information Available Referrals Refer to Reason for Referral Status Appt Date Yue Lal MD R hip OA Assume Management this Problem Only [facility] [address] [place] [address] [phone]
--- OUTSIDE RECORDS SUMMARY | 2019-03-18 08:22 | XMS REPORT | Continuity of Care Document ---
:1955 External Reference #:[id number] Author Name Scott Vila M.D. 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 Medicine Problems Description No Information Available Social History Type Date Description Comments Sex Unknown ETOH Use Occasionally consumes 2 drinks per week alcohol Tobacco Use Start: Unknown Patient has never smoked Recreational Drug Use Denies Drug Use Smoking Status Reviewed: 01/22/19 Patient has never smoked Exercise Type/Frequency Exercises regularly walk 1 mile daily Allergies, Adverse Reactions, Alerts Active Allergies Reaction Severity Comments Date Oxycodone depression 02/20/2018 Medications Active Medications SIG Qnty Indications Ordering Provider Date Aspir-81 1 by mouth every Unknown 81mg Tablets DR day Labetalol HCL 1/2 tablet Glen Anton 100mg Tablets every 12 hs M.DKay Osteo Bi-Flex Regular 2 tablets daily Unknown Strength Am 250-200mg Tablets Tramadol HCL 1 tablet every 6 Unknown 50mg Tablets hs prn Vitamin D 2 by mouth every Unknown 2000Unit Capsules day Chlorthalidone 1 by mouth every Unknown 25mg Tablets day Medications Administered in Office Medication SIG Qnty Indications Ordering Provider Date Technetium TC 99M TetrGlen rosales M.D. 03/15/2018 Per Unit Dose Up To 40 Millicuries Injection Immunizations Description No Information Available Vital Signs Date Vital Result Comment 01/22/2019 11:00am Height 69 inches 5'9" Weight 193.00 lb Heart Rate 56 /min BP Systolic 154 mmHg BP Diastolic 84 mmHg Respiratory Rate 14 /min Pain Level 8 BMI (Body Mass Index) 28.5 kg/m2 07/10/2018 8:50am Height 70 inches 5'10" Weight 298.00 lb with shoes BP Systolic Sitting 124 mmHg lue reg cuff BP Diastolic Sitting 70 mmHg lue reg cuff BP Systolic Standing 120 mmHg lue reg cuff BP Diastolic Standing 70 mmHg lue reg cuff Respiratory Rate 16 /min BMI (Body Mass Index) 42.8 kg/m2 Ejection Fraction 45-50% echo, 05/06/18 Results Description No Information Available Procedures Date Code Description Status 02/27/2018 945208914 Diabetic Retinal Eye Exam Completed 11/10/2016 95844431 Colonoscopy Completed Medical Devices Description No Information Available Encounters Description No Information Available Assessments Date Code Description Provider 01/22/2019 M16.11 Unilateral primary osteoarthritis, right hip Scott Vila M.D. Plan of Treatment No Information Available Functional Status Description No Information Available Mental Status Description No Information Available Referrals Description No Information Available
--- OUTSIDE RECORDS SUMMARY | 2019-03-18 08:22 | XMS REPORT | Continuity of Care Document ---
:1955 External Reference #:[id number] Author Name Scott Vila M.D. 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 [phone] Medicine Problems Description No Information Available Social History Type Date Description Comments Sex Unknown ETOH Use Occasionally consumes 2 drinks per week alcohol Tobacco Use Start: Unknown Patient has never smoked Recreational Drug Use Denies Drug Use Smoking Status Reviewed: 03/03/19 Patient has never smoked Exercise Type/Frequency Exercises regularly walk 1 mile daily Allergies, Adverse Reactions, Alerts Active Allergies Reaction Severity Comments Date Oxycodone depression 02/20/2018 Medications Active Medications SIG Qnty Indications Ordering Provider Date Preservision Areds 2 1 by mouth every Scott Vila M.D. 03/03/2019 A[place]s 2 day Capsules Labetalol HCL 1/2 tablet Glen Anton, 100mg Tablets every 12 hs M.D. Osteo Bi-Flex Regular 2 tablets daily Unknown Strength Am 250-200mg Tablets Vitamin D 2 by mouth every Unknown 2000Unit Capsules day Chlorthalidone 1 by mouth every Unknown 25mg Tablets day Tylenol Extra Strength 1-2 tabs by Unknown 500mg mouth every 6 Tablets hours as needed Latanoprost-Timolol 1 drop in right Unknown Maleate eye PM 0.005-0.5% Solution Medications Administered in Office Medication SIG Qnty Indications Ordering Provider Date Technetium TC 99M TetrofGlen casey M.D. 03/15/2018 Per Unit Dose Up To 40 Millicuries Injection Immunizations Description No Information Available Vital Signs Date Vital Result Comment 03/03/2019 10:29am Height 69 inches 5'9" Weight 197.75 lb Heart Rate 60 /min BP Systolic 140 mmHg BP Diastolic 92 mmHg Respiratory Rate 18 /min Body Temperature 98.0 F Pain Level 6 BMI (Body Mass Index) 29.2 kg/m2 02/26/2019 8:16am Height 69 inches 5'9" Weight 196.00 lb with shoes Heart Rate 68 /min BP Systolic Sitting 128 mmHg lue reg cuff BP Diastolic Sitting 80 mmHg lue reg cuff BP Systolic Standing 124 mmHg lue reg cuff BP Diastolic Standing 80 mmHg lue reg cuff Respiratory Rate 14 /min BMI (Body Mass Index) 28.9 kg/m2 Ejection Fraction 45-50% echo. 05/06/18 Results Description No Information Available Procedures Date Code Description Status 02/26/2019 83184 EKG Tracing & Interpretation Completed 02/27/2018 192261667 Diabetic Retinal Eye Exam Completed 11/10/2016 [id number] Colonoscopy Completed Medical Devices Description No Information Available Encounters Type Date Location Provider Dx Diagnosis Office Visit 01/22/2019 [facility] Scott Vila M.D. M16.11 Unilateral primary 11:00a [place] oste[place], right hip Assessments Date Code Description Provider 03/03/2019 M16.11 Unilateral primary osteoarthritis, right Scott Vila M.D. hip 02/26/2019 Z95.818 Presence of other cardiac implants and Glen Anton M.D. grafts 02/26/2019 Z95.2 Presence of prosthetic heart valve Glen Anton M.D. 02/26/2019 Z01.810 Preoperative cardiovascular examination Glen Anton M.D. 02/26/2019 M16.11 Unilateral primary osteoarthritis, right Glen Anton M.D. hip 01/22/2019 M16.11 Unilateral primary osteoarthritis, right Scott Vila M.D. hip Plan of Treatment Future Appointment(s):04/09/2019 9:45 am - Scott Vila M.D. at [facility]03/18/2019 10:00 am - Scott Vila M.D. at [facility]1803/03/2019 - Scott Vila M.D.M16.11 Unilateral primary osteoarthritis, right hipFollow up:Follow up: 4 to 6 weeks Functional Status Description No Information Available Mental Status Description No Information Available Referrals Description No Information Available
[2019-03-18] MEDS ORDERED: Ibuprofen TAB* 400 MG ONE (08:36)
[2019-03-18] MEDS ORDERED: Acetaminophen TAB* 325 MG ONE (08:36)
[2019-03-18] MEDS ORDERED: ceFAZolin 2 GM in NS PREMIX(*) 2 GM/100 ML BAG IVPB ONE (08:37)
[2019-03-18] MEDS ORDERED: Famotidine IV* 10 MG/ML 2 ML (20 mg) ONE (08:37)
[2019-03-18 08:55] VITALS: BP 156/97
[2019-03-18 09:22] LABS: Activated Partial Thrombo Time 54.7 seconds (26.0-38.0)
[2019-03-18] MEDS ORDERED: fentaNYL* 50 MCG/ML 2 ML VIAL (100 MCG VIAL) ONE (10:18)
[2019-03-18] MEDS ORDERED: Midazolam* 1 MG/ML 2 ML VIAL (2 MG) ONE (10:19)
[2019-03-18] MEDS ORDERED: Bupivacaine 0.5%* 50 ML MDV VIAL ONE (10:52)
[2019-03-18] MEDS ORDERED: EPHEDrine (Pressors)* 50 MG/ML VIAL ONE (13:13)
[2019-03-20 12:31] LABS: Coagulation F VIII Activity 100 % (55 - 200)
== END 2019-03-19 09:00 | disposition home or self-care (01) | DRG 351 ==
LOC: AA 03-18 08:17
PROVIDERS: ADMIT Orthopaedic Surgery; ATTEND Orthopaedic Surgery
DX: M16.11 Unilateral primary osteoarthritis, right hip (principal); Z53.09 Procedure and treatment not carried out because of other contraindication; R79.1 Abnormal coagulation profile; I10 Essential (primary) hypertension; Z96.642 Presence of left artificial hip joint; Z86.73 Personal history of transient ischemic attack (TIA), and cerebral infarction without residual deficits; Z95.2 Presence of prosthetic heart valve; Z79.899 Other long term (current) drug therapy; Z88.5 Allergy status to narcotic agent
CPT/HCPCS: 36415; 85730; A9270-GY; J0690; J2250; J3010; J3490

== ENCOUNTER 2023-05-09 15:51 | Observation (INO) ==
[2023-05-09 16:31] LABS: INR 1.15 (0.83-1.13)
[2023-05-09 16:32] LABS: ABS Basophils 0.1 10^3/uL (0.0-0.1); ABS Eosinophils 0.3 10^3/uL (0.0-0.5); ABS Lymphocytes 1.3 10^3/uL (1.0-4.8); ABS Monocytes 0.8 10^3/uL (0.0-1.1); ABS Neutrophils 6.4 10^3/uL (1.5-7.6); Eosinophil % 3.6 %; Hematocrit 38.6 % (38-53); Hemoglobin 13.6 g/dL (13.2-16.3); Lymphocyte % 14.8 %; Mean Corpuscular Hemoglobin 30.5 pg (27-33); Mean Corpuscular Hgb Conc 35.3 g/dL (31-36); Mean Corpuscular Volume 86.5 fL (80-97); Platelet Count 175 10^3/uL (150-450); Red Blood Count 4.46 10^6/uL (4.06-5.63); Red Cell Distribution Width 13.1 % (12-17); White Blood Count 8.9 10^3/uL (3.6-10.2)
[2023-05-09 16:38] LABS: Albumin 4.4 g/dL (3.2-5.2); Albumin/Globulin Ratio 1.9 (1-3); Calcium 9.1 mg/dL (8.6-10.3); Creatinine, Serum 1.19 mg/dL (0.67-1.17); Globulin 2.3 g/dL (2-4); Potassium 4.6 mmol/L (3.5-5.0); Total Bilirubin 0.9 mg/dL (0.2-1.0); Total Protein 6.7 g/dL (6.4-8.9)
[2023-05-09 17:46] LABS: High Sensitivity Troponin 1 Hr 44 pg/mL (<20)
[2023-05-09] MEDS ORDERED: Iohexol 350 (CONTRAST) 500 ML MDV IV ONE (18:12)
[2023-05-09] MEDS ORDERED: Olmesartan 20 mg TAB (NF) PO ONE (19:31)
[2023-05-10] MEDS: Heparin 5000 UNITS/ML 1 mL VIAL SUBCUT SCH ×2 (00:36→09:40)
[2023-05-10 07:07] LABS: Anion Gap 8 mmol/L (2-16); Blood Urea Nitrogen 16 mg/dL (6-24); CO2 Carbon Dioxide 25 mmol/L (22-32); Calcium 8.6 mg/dL (8.6-10.3); Chloride 103 mmol/L (101-111); Creatinine, Serum 1.04 mg/dL (0.67-1.17); Glucose 90 mg/dL (70-100); Magnesium 1.9 mg/dL (1.9-2.7); Potassium 4.1 mmol/L (3.5-5.0); Sodium 136 mmol/L (135-145); eGFR CKD-EPI 78.7 (>60)
[2023-05-10] MEDS ORDERED: Furosemide 40 mg/4 ml IV VIAL IV ONE ×2 (09:13→12:45)
[2023-05-10 14:16] LABS: C Reactive Protein < 1.00 mg/L (<8.01)
[2023-05-10] MEDS ORDERED: hydrALAZINE 20 mg/ml 1 ML Vial IV IV SLOW PU PRN (14:34)
[2023-05-10 14:38] LABS: High Sensitivity Troponin 1 Hr 49 pg/mL (<20)
[2023-05-10 18:13] VITALS: BP 140/59
[2023-05-10] MEDS ORDERED: Latanoprost 0.005% 2.5 ml BTL BOTH EYES SCH (21:00)
[2023-05-10] MEDS ORDERED: Olmesartan 20 mg TAB (NF) PO SCH (21:00)
[2023-05-10] MEDS ORDERED: TRAVOPROST Z 0.004% BOTH EYES SCH (21:00)
== END 2023-05-10 15:52 | disposition short-term general hospital (02) ==
LOC: EDHOLD 15:51 → ED 15:51 → SUATTDRO 23:06 → EDHOLD 05-10 15:50
PROVIDERS: ADMIT Student in an Organized Health Care Education/Training Program; ATTEND Student in an Organized Health Care Education/Training Program